=== PATIENT | male | born 1950 | race African-American/Black ===

== ENCOUNTER 2016-08-29 00:51 | Inpatient (IN) | payer OTHER, MEDICARE ==
[2016-08-29] VITALS (9 sets, daily range): BP systolic 143–208; BP diastolic 76–114; PULSE 84–106; RESP 17–22; TEMP 99.3–102.6; O2SAT 95–99
[~2016-08-29] VITALS: Ht 182.9 cm; Wt 78.6 kg
[~2016-08-29 00:51] MED LIST: ASPI81TA82 PO; ATOR40TA PO; CLOP75TA PO; LISI20 PO; NIFE1TAB85 PO; OMEP20TA PO; TERA10CA3 PO; VITA-13
[2016-08-29] MEDS ORDERED: SODIUM CHLOR 0.9% 1000 ML INJ 1,000 ML IV SCH (01:32)
[2016-08-29] MEDS ORDERED: LISI40TA PO (01:34)
[2016-08-29] MEDS ORDERED: TERA10CA3 PO (01:34)
[2016-08-29] MEDS ORDERED: VITA1000 PO (01:34)
[2016-08-29] MEDS ORDERED: DONE5TAB7 PO (01:34)
[2016-08-29] MEDS ORDERED: OMEP20TA PO (01:34)
[2016-08-29] MEDS ORDERED: ATOR1TAB18 PO (01:34)
[2016-08-29] MEDS ORDERED: AMLO10TA2 PO (01:34)
[2016-08-29] MEDS ORDERED: CLOP75TA PO (01:34)
--- NOTE | 2016-08-29 01:40 | PD ---
HPI Chief Complaint: Altered Mental Status Time Seen by Provider: 01:32 Travel History International Travel<30 days: No Contact w/Intl Traveler<30days: No Traveled to known affect area: No History of Present Illness HPI 66-year-old male presents to the emergency department by EMS transport from home where noted patient to have altered mentation. Patient has chronic dementia and memory disturbance reportedly. According to EMS noted that patient was weaker today and had urinary incontinence. Patient has history of hypertension CVA and dementia. No reported history of CAD or diabetes. Patient has had new congested cough without reported hemoptysis. No reported complaint of shortness of breath or chest pain or abdominal pain. History provided by EMS based on information provided reportedly by patient's spouse. Patient himself denies any head pain neck pain chest pain back pain abdominal pain or extremity pain. Patient however only knows his name and date of and is not aware of why he is in the emergency Department or the year or month or his current residence. Patient is able to identify his is severe and that she knows his history. [facility] Past Medical History Narrative Medical Hypertension CVA with reported mild right-sided weakness dyslipidemia dementia tobaccoism nursing notes reviewed Cardiovascular Problems: Yes High Cholesterol: Yes Chest Pain: No Cerebrovascular Accident: Yes Diminished Hearing: No GERD: Yes Hypertension: Yes Neurologic: Yes (right side deficit related to cva) Past Surgical History Surgical History: Unable to Obtain Social History Alcohol Use: Yes Tobacco Use: Yes (1PPD) Substance Use: No Allergies-Medications (Allergen,Severity, Reaction): Coded Allergies: *MDRO Multi-Drug Resistant Organism (Verified Adverse Reaction, Unknown, ) MRSA PCR Screen positive 03/17/15. Reported Meds & Prescriptions Reported Meds & Active Scripts Active Reported Amlodipine (Amlodipine Besylate) 10 Mg Tab 10 Mg PO DAILY Atorvastatin (Atorvastatin Calcium) 80 Mg Tab 40 Mg PO HS Lisinopril 40 Mg Tab 40 Mg PO DAILY Clopidogrel (Clopidogrel Bisulfate) 75 Mg Tab 75 Mg PO DAILY Donepezil 5 Mg Tab 5 Mg PO DAILY@0600 Vitamin D-1000 (Cholecalciferol) 1,000 Unit Tab 2,000 Units PO DAILY Terazosin (Terazosin HCl) 10 Mg Cap 10 Mg PO HS Omeprazole 20 Mg Tab 20 Mg PO DAILY Review of Systems ROS Limitations: Clinical Condition, Altered Mental Status, Other: (/EMS) Except as stated in HPI: all other systems reviewed are Neg General / Constitutional: Positive: Fever (per EMS temperature 10 3F) HENT: Positive: Congestion Cardiovascular: No: Chest Pain or Discomfort Respiratory: Positive: Cough (provided by ), No: Shortness of Breath ( according to ) Gastrointestinal: No: Vomiting, Diarrhea (according to spouse) Genitourinary: Positive: Incontinence (according to EMS and spouse) Musculoskeletal: No: Pain (according to spouse) Neurologic: Positive: Weakness (according to spouse), Change in Mentation ( according to EMS and spouse) Hematologic/Lymphatic: No: Easy Bruising (according to spouse) Physical Exam Narrative GENERAL: Well-developed well-nourished pleasant male in no acute distress no respiratory distress; oral temperature 102.3F SKIN: Warm and dry. HEAD: Atraumatic. Normocephalic. EYES: Pupils equal and round. No scleral icterus. No injection or drainage. ENT: No nasal bleeding or discharge. Mucous membranes pink and moist. NECK: Trachea midline. No JVD. CARDIOVASCULAR: Regular rate and rhythm. RESPIRATORY: No accessory muscle use. Clear to auscultation. Breath sounds equal bilaterally. GASTROINTESTINAL: Abdomen soft, non-tender, nondistended. Hepatic and splenic margins not palpable. MUSCULOSKELETAL: Extremities without clubbing, cyanosis, or edema. No obvious deformities. NEUROLOGICAL: Awake and alert with mild confusion. No obvious cranial nerve deficits. Motor grossly within normal limits. Five out of 5 muscle strength in the arms and legs. Normal speech. PSYCHIATRIC: Appropriate mood and affect. Data Data Last Documented VS Vital Signs Date Time Temp Pulse Resp B/P Pulse Ox O2 Delivery O2 Flow Rate FiO2 08/29/16 02:10 22 98 Room Air 08/29/16 01:14 102.3 103 208/114 Orders Electrocardiogram (08/29/16 01:32) Complete Blood Count With Diff (08/29/16 01:32) Comprehensive Metabolic Panel (08/29/16 01:32) Creatine Kinase (Cpk) (08/29/16 01:32) Prothrombin Time / Inr (Pt) (08/29/16 01:32) Act Partial Throm Time (Ptt) (08/29/16 01:32) Troponin I (08/29/16 01:32) Lactic Acid Sepsis Protocol (08/29/16 01:32) Urinalysis - C+S If Indicated (08/29/16 01:32) Blood Culture (08/29/16 01:32) Chest, Single Ap (08/29/16 01:32) Ct Brain W/O Iv Contrast(Rout) (08/29/16 01:32) Blood Glucose (08/29/16 01:32) Ecg Monitoring (08/29/16 01:32) Iv Access Insert/Monitor (08/29/16 01:32) Oximetry (08/29/16 01:32) Sodium Chloride 0.9% Flush (Ns Flush) (08/29/16 01:45) Sodium Chlor 0.9% 1000 Ml Inj (Ns 1000 M (08/29/16 01:32) Acetaminophen (Tylenol) (08/29/16 01:45) Levofloxacin 750 Mg Premix Inj (Levaquin (08/29/16 01:45) Influenzae A/B Antigen (08/29/16 01:32) CKMB (08/29/16 01:40) CKMB% (08/29/16 01:40) Nitroglycerin 2% Oint (Nitroglycerin 2% (08/29/16 02:30) Urine Culture (08/29/16 02:35) Admit Order (Ed Use Only) (08/29/16 ) ^ Saline Lock (08/29/16 03:35) Resp Oxygen Kyle C Titrat 1-4 L (08/29/16 ) ^ Notify Dr: Other (08/29/16 03:35) Sodium Chloride 0.9% Flush (Ns Flush) (08/29/16 09:00) Sodium Chloride 0.9% Flush (Ns Flush) (08/29/16 03:45) Labs Laboratory Tests Test 08/29/16 08/29/16 08/29/16 01:40 01:43 02:35 White Blood Count 6.5 TH/MM3 Red Blood Count 4.61 MIL/MM3 Hemoglobin 13.5 GM/DL Hematocrit 38.5 % Mean Corpuscular Volume 83.4 FL Mean Corpuscular Hemoglobin 29.2 PG Mean Corpuscular Hemoglobin 35.0 % Concent Red Cell Distribution Width 14.2 % Platelet Count 140 TH/MM3 Mean Platelet Volume 11.0 FL Neutrophils (%) (Auto) 81.3 % Lymphocytes (%) (Auto) 4.0 % Monocytes (%) (Auto) 13.8 % Eosinophils (%) (Auto) 0.0 % Basophils (%) (Auto) 0.9 % Neutrophils # (Auto) 5.3 TH/MM3 Lymphocytes # (Auto) 0.3 TH/MM3 Monocytes # (Auto) 0.9 TH/MM3 Eosinophils # (Auto) 0.0 TH/MM3 Basophils # (Auto) 0.1 TH/MM3 CBC Comment DIFF FINAL Differential Comment Prothrombin Time 13.3 SEC Prothromb Time International 1.2 RATIO Ratio Activated Partial 30.7 SEC Thromboplast Time Sodium Level 142 MEQ/L Potassium Level 3.5 MEQ/L Chloride Level 105 MEQ/L Carbon Dioxide Level 24.0 MEQ/L Anion Gap 13 MEQ/L Blood Urea Nitrogen 16 MG/DL Creatinine 1.52 MG/DL Estimat Glomerular Filtration 56 ML/MIN Rate Random Glucose 100 MG/DL Calcium Level 8.3 MG/DL Total Bilirubin 1.1 MG/DL Aspartate Amino Transf 21 U/L (AST/SGOT) Alanine Aminotransferase 19 U/L (ALT/SGPT) Alkaline Phosphatase 76 U/L Total Creatine Kinase 518 U/L Creatine Kinase MB 0.6 NG/ML Creatine Kinase MB % 0.1 % Troponin I 0.04 NG/ML Total Protein 7.3 GM/DL Albumin 3.5 GM/DL Lactic Acid Level 1.2 mmol/L Urine Color YELLOW Urine Turbidity HAZY Urine pH 5.5 Urine Specific [place] 1.022 Urine Protein 30 mg/dL Urine Glucose (UA) NEG mg/dL Urine Ketones NEG mg/dL Urine Occult Blood MOD Urine Nitrite NEG Urine Bilirubin NEG Urine Urobilinogen LESS THAN 2.0 MG/DL Urine Leukocyte Esterase SMALL Urine RBC 5 /hpf Urine WBC 15 /hpf Urine WBC Clumps OCC Urine Squamous Epithelial <1 /hpf Cells Urine Transitional Epithelial <1 /hpf Cells Urine Bacteria RARE /hpf Urine Mucus FEW /lpf Microscopic Urinalysis Comment CATH-CULTURE IND MDM Medical Decision Making Medical Screen Exam Complete: Yes Emergency Medical Condition: Yes Medical Record Reviewed: Yes Interpretation(s) EKG: Sinus tachycardia rate 106 age-indeterminate QS septally in V1 V2 no acute ST elevation or injury pattern change noted Differential Diagnosis Altered mental status, hypertension, febrile illness, urinary incontinence, ACS , DC, sepsis, CVA, dehydration Narrative Course @ 1:36 Elise Burleson patient's --has noted patient has not been himself has not felt well times one week with worsening symptoms today and then this evening with generalized weakness and urinary incontinence. Patient is has had coughing congestion. is not noticed that he's had a fever. Patient has appointment with his primary care provider tomorrow however due to worsening symptoms tonight decided to have him transported to the emergency department and called EMS for transport. Patient's had no chest pain or shortness of breath according to the . No abdominal pain no vomiting or diarrhea. No new upper or lower extremity numbness tingling or weakness and no recent fall or injury. CT brain noncontrast no bleed or acute process; chest x-ray shows basilar atelectasis but no obvious lobar infiltrate; CBC is automated differential total white cell count is normal but left shift with 84% neutrophils; lactic acid is in normal range at this time; cardiac enzymes are within normal limits EKG shows sinus tachycardia with age indeterminate septal QS in V1 V2; patient with abnormal urinalysis by catheter specimen culture is indicated: Patient has been treated with Levaquin and meets sepsis criteria and patient will be admitted for IV antibiotics serial cardiac enzymes and blood pressure management. Altered mentation most likely reflects patient's baseline mild dementia as well as febrile illness. Critical Care Narrative Aggregate critical care time was 35 minutes. Time to perform other separately billable procedures was not included in the critical care time. My time did not include minutes spent treating any other patients simultaneously or on activities that did not directly contribute to the patient's treatment. The services I provided to this patient were to treat and/or prevent clinically significant deterioration that could result in: Septic shock, respiratory failure, I provided critical care services requiring my management, as noted below: Chart data review, documentation time, medication orders and management, vital sign assessments/reviewing monitor data, ordering and reviewing lab tests, ordering and interpreting/reviewing x-rays and diagnostic studies, care of the patient and discussion of the patient with the admitting physicians. Sepsis Criteria SIRS Criteria (2 or more): Temp > 100.9 or < 96.8, Heart rate over 90 Sepsis Criteria (SIRS+source): Infect source susp/known (urine, possible early pneumonia) Physician Communication Physician Communication call paced to [facility] service; Dr Lopez--admit to her service Diagnosis Primary Impression: Sepsis Qualified Code: A41.9 - Sepsis, due to unspecified organism Additional Impressions: UTI (urinary tract infection) Qualified Code: N39.0 - Urinary tract infection without hematuria, site unspecified HTN (hypertension) Qualified Code: I10 - Essential hypertension Sharon Guerra MD Aug 29, 2016 01:40
[2016-08-29] MEDS ORDERED: SODIUM CHLORIDE 0.9% FLUSH 5 ML FLUSH IVF PRN ×2 (01:45→03:45)
[2016-08-29] MEDS ORDERED: ACETAMINOPHEN 325 MG TAB PO ONE (01:45)
[2016-08-29] MEDS ORDERED: LEVOFLOXACIN 750 MG PREMIX INJ 150 ML IV ONE (01:45)
[2016-08-29 01:54] LABS: AUTOMATED NEUTROPHIL # 5.3 TH/MM3 (1.8-7.7); BASOPHIL # 0.1 TH/MM3 (0-0.2); BASOPHIL % 0.9 % (0.0-2.0); HEMATOCRIT 38.5 % (39.0-51.0); HEMO FLAGS DIFF FINAL; LYMPHOCYTE # 0.3 TH/MM3 (1.0-4.8); MEAN CELL VOLUME 83.4 FL (80.0-100.0); MEAN CORPUSCULAR HEMOGLOBIN 29.2 PG (27.0-34.0); MONO % 13.8 % (0.0-8.0); NEUT % 81.3 % (16.0-70.0); PLATELET COUNT 140 TH/MM3 (150-450); RED BLOOD COUNT 4.61 MIL/MM3 (4.50-5.90); RED CELL DISTRIBUTION WIDTH 14.2 % (11.6-17.2); WHITE BLOOD COUNT 6.5 TH/MM3 (4.0-11.0)
--- NOTE | 2016-08-29 02:00 | RADRPT ---
EXAM DATE/TIME: 08/29/2016 01:43 [facility] COMPARISON: No previous studies available for comparison. INDICATIONS : Shortness of breath. MEDICAL HISTORY : Stroke. SURGICAL HISTORY : None. ENCOUNTER: Initial ACUITY: 1 day PAIN SCORE: Non-responsive. LOCATION: Bilateral chest FINDINGS: A single view of the chest demonstrates the lungs to be symmetrically aerated without evidence of mas s, infiltrate or effusion. Minimal atelectatic changes laterally left hemidiaphragm. The cardiomedia stinal contours are unremarkable. Osseous structures are intact. CONCLUSION: Minimal left basilar atelectatic changes. Otherwise negative. Andrew Anderson MD on August 29, 2016 at 1:58 Board Certified Radiologist. This report was verified electronically.
[2016-08-29 02:07] LABS: APTT (PATIENT) 30.7 SEC (24.3-30.1); INTERNATIONAL NORMALIZED RATIO 1.2 RATIO; PROTHROMBIN TIME - PATIENT 13.3 SEC (9.8-11.6)
[2016-08-29 02:08] LABS: ALT (GPT) 19 U/L (12-78); ANION GAP 13 MEQ/L (5-15); AST (GOT) 21 U/L (15-37); BLOOD UREA NITROGEN 16 MG/DL (7-18); CHLORIDE 105 MEQ/L (98-107); GLOMERULAR FILTRATION RATE 56 ML/MIN (>89); POTASSIUM 3.5 MEQ/L (3.5-5.1); SODIUM (NA) 142 MEQ/L (136-145)
[2016-08-29 02:12] LABS: ALKALINE PHOSPHATASE 76 U/L (45-117); CREATINE KINASE 518 U/L (39-308); TOTAL BILIRUBIN ADULT 1.1 MG/DL (0.2-1.0)
[2016-08-29 02:24] LABS: CKMB 0.6 NG/ML (0.5-3.6)
[2016-08-29] MEDS ORDERED: NITROGLYCERIN 2% OINT 1 GM PACKET TOPICAL ONE (02:30)
--- NOTE | 2016-08-29 03:07 | RADRPT ---
EXAM DATE/TIME: 08/29/2016 02:20 [facility] COMPARISON: CT BRAIN W/O CONTRAST, March 16, 2015, 23:04. INDICATIONS : Altered mental status. RADIATION DOSE: 44.93 CTDIvol (mGy) MEDICAL HISTORY : Cardiovascular disease. Hypertension. Gastroesophageal reflux disease.CVA SURGICAL HISTORY : None. ENCOUNTER: Initial ACUITY: 1 day PAIN SCALE: 0/10 LOCATION: cranial TECHNIQUE: Multiple contiguous axial images were obtained of the head. Using automated exposure control and adj ustment of the mA and/or kV according to patient size, radiation dose was kept as low as reasonably a chievable to obtain optimal diagnostic quality images. FINDINGS: CEREBRUM: The ventricles are normal for age. Bilateral old lacunar type infarcts. Periventricular small vessel ischemic demyelination most prominent over the right lateral ventricle anteriorly. No evidence of m idline shift, mass lesion, hemorrhage or acute infarction. No extra-axial fluid collections are seen . POSTERIOR FOSSA: The cerebellum and brainstem are intact. The 4th ventricle is midline. The cerebellopontine angle i s unremarkable. EXTRACRANIAL: The visualized portion of the orbits is intact. SKULL: The calvaria is intact. No evidence of skull fracture. CONCLUSION: 1. Stable chronic changes with some periventricular small vessel ischemic demyelination and bilateral old lacunar type infarcts. 2. No acute intracranial process. Andrew Anderson MD on August 29, 2016 at 3:02 Board Certified Radiologist. This report was verified electronically.
[2016-08-29 03:21] LABS: BACTERIA, URINE RARE /hpf; BLOOD, URINE MOD (NEG); COMMENT (UR) CATH-CULTURE IND; CULTURE IF INDICATED CATH CULTURE IND; GLUCOSE,URINE NEG (NEG); KETONE, URINE NEG (NEG); MUCUS URINE FEW /lpf (OCC); NITRITE,URINE NEG (NEG); PH, URINE 5.5 (5.0-8.5); SQUAMOUS EPITHELIAL CELL URINE <1 /hpf (0-5); TRANSITIONAL EPI CELLS, URINE <1 /hpf; URINE COLOR YELLOW (YELLW/STRAW)
[2016-08-29] MEDS ORDERED: LEVOFLOXACIN 750 MG PREMIX INJ 150 ML IV SCH (04:00)
[2016-08-29] MEDS ORDERED: ONDANSETRON HCL 4 MG/2 ML VIAL IVP PRN (04:15)
[2016-08-29] MEDS ORDERED: SODIUM CHLORIDE 0.9% FLUSH 5 ML FLUSH FLUSH PRN (04:15)
[2016-08-29] MEDS ORDERED: NALOXONE HCL 0.4 MG/ML AMP IV PRN (04:15)
[2016-08-29] MEDS ORDERED: RESP: ALBUTEROL 2.5 MG/IPRATROPIUM 0.5 MG NEB (SCH) NEB ONE (05:45)
--- NOTE | 2016-08-29 06:51 | HHI.HP ---
[facility] Service [facility] Primary Care Physician [facility] Admission Diagnosis sepsis; uti; htn Diagnoses: Chief Complaint: not able to give specific complaints Travel History International Travel<30 Days: No Contact w/Intl Traveler <30 Da: No Traveled to Known Affected Are: No History of Present Illness History from patient, ER physician communication, and review of medical records. Patient is an elderly gentleman with prior history of CVA. He seems to be forgetful although he tries to answer questions by stating yes or no. He claims that his brought him here because he asked her to do so. However, as per triage notes, patient was brought in by ambulance personnel. Patient is really not able to answer reliably. In the emergency room, patient was found to have fever of 102.3. He was also noted to be tachycardic in the 110s to 120s. At the time of my exam, he was also noted to have cough. Which was dry and nonproductive. The nursing staff also reported to me that EMS personnel stated patient was having dry nonproductive cough at home. Apart from that, patient denies any nausea/vomiting/diarrhea. He denies any urinary burning or pain on urination. Denies seeing any blood in his stool or in his urine. Again, unsure how reliable his answers are. Patient denies any recent falls or syncope. There was no report of that per EMS as well. While in emergency room, patient was quite confused and tried to get out of bed and walk out of the hospital. There for a sitter was ordered. Per ER report, patient's called ambulance because patient has been confused. "noted that patient was weaker today and had urinary incontinence. Patient has history of hypertension CVA and dementia. No reported history of CAD or diabetes. Patient has had new congested cough without reported hemoptysis. No reported complaint of shortness of breath or chest pain or abdominal pain." Review of Systems Except as stated in HPI: all other systems reviewed are Neg Review of system is limited as patient seems to have memory impairment /prior CVA. He pretty much answers no to every questioning. Past Family Social History Past Medical History Hypertension Hyperlipidemia CVA Past Surgical History None per EMR Reported Medications Patient's medications listed on EMRreviewed Allergies: Coded Allergies: *MDRO Multi-Drug Resistant Organism (Verified Adverse Reaction, Unknown, ) MRSA PCR Screen positive 03/17/15. Family History Unknown. Patient is not able to tell me. Social History Reports he still smokes a pack a day. Reports he drinks about 4-5 drinks a day. Unsure if this is true. Denies any drug abuse. Physical Exam Vital Signs Vital Signs Date Time Temp Pulse Resp B/P Pulse Ox O2 Delivery O2 Flow Rate FiO2 08/29/16 02:10 22 98 Room Air 08/29/16 01:14 102.3 103 22 208/114 99 Physical Exam GENERAL: This is elderly gentleman, not in acute distress, looks confused and has blank stare, answers questions though seems to be forgetful and some incorrect answers SKIN: Poor skin turgor. Superficial ecchymoses HEAD: Atraumatic. Normocephalic. No temporal or scalp tenderness. EYES: No scleral icterus. No injection or drainage. ENT: Nose without bleeding, purulent drainage or septal hematoma. Airway patent. Dry oral mucosa. NECK: Trachea midline. No JVDSupple, nontender, no meningeal signs. CARDIOVASCULAR: Regular rate and rhythm without murmurs, gallops, or rubs. Lungs: Bilateral basilar crepitations. Poor inspiratory effort. GASTROINTESTINAL: Abdomen soft, non-tender, nondistended.. No guarding. No CVA tenderness. MUSCULOSKELETAL: Extremities without clubbing, cyanosis, or edema. No calf tenderness NEUROLOGICAL: Awake Motor and sensory grossly within normal limits. Patient is planning towards his right side and seems to be weaker on this although he really is not following commands to do a full exam. Normal speech though slow to respond. Laboratory Laboratory Tests Test 08/29/16 08/29/16 08/29/16 01:40 01:43 02:35 White Blood Count 6.5 Red Blood Count 4.61 Hemoglobin 13.5 Hematocrit 38.5 Mean Corpuscular Volume 83.4 Mean Corpuscular Hemoglobin 29.2 Mean Corpuscular Hemoglobin 35.0 Concent Red Cell Distribution Width 14.2 Platelet Count 140 Mean Platelet Volume 11.0 Neutrophils (%) (Auto) 81.3 Lymphocytes (%) (Auto) 4.0 Monocytes (%) (Auto) 13.8 Eosinophils (%) (Auto) 0.0 Basophils (%) (Auto) 0.9 Neutrophils # (Auto) 5.3 Lymphocytes # (Auto) 0.3 Monocytes # (Auto) 0.9 Eosinophils # (Auto) 0.0 Basophils # (Auto) 0.1 CBC Comment DIFF FINAL Differential Comment Prothrombin Time 13.3 Prothromb Time International 1.2 Ratio Activated Partial 30.7 Thromboplast Time Sodium Level 142 Potassium Level 3.5 Chloride Level 105 Carbon Dioxide Level 24.0 Anion Gap 13 Blood Urea Nitrogen 16 Creatinine 1.52 Estimat Glomerular Filtration 56 Rate Random Glucose 100 Calcium Level 8.3 Total Bilirubin 1.1 Aspartate Amino Transf 21 (AST/SGOT) Alanine Aminotransferase 19 (ALT/SGPT) Alkaline Phosphatase 76 Total Creatine Kinase 518 Creatine Kinase MB 0.6 Creatine Kinase MB % 0.1 Troponin I 0.04 Total Protein 7.3 Albumin 3.5 Lactic Acid Level 1.2 Urine Color YELLOW Urine Turbidity HAZY Urine pH 5.5 Urine Specific [place] 1.022 Urine Protein 30 Urine Glucose (UA) NEG Urine Ketones NEG Urine Occult Blood MOD Urine Nitrite NEG Urine Bilirubin NEG Urine Urobilinogen LESS THAN 2.0 Urine Leukocyte Esterase SMALL Urine RBC 5 Urine WBC 15 Urine WBC Clumps OCC Urine Squamous Epithelial <1 Cells Urine Transitional Epithelial <1 Cells Urine Bacteria RARE Urine Mucus FEW Microscopic Urinalysis Comment CATH-CULTURE IND Date/Time Procedure Status Source Growth 08/29/16 02:35 Urine Culture Received Urine Catheterized Urine Pending 08/29/16 02:00 Influenza Types A,B Antigen (RUSSEL) - Final Complete Nasal Washing NEGATIVE FOR FLU A AND B ANTIGEN.... 08/29/16 01:42 Aerobic Blood Culture Received Blood Peripheral Pending 08/29/16 01:42 Anaerobic Blood Culture Received Blood Peripheral Pending Result Diagram: 08/29/160 08/29/16139 Imaging Last [address] 08/29/16131 Signed Impressions: Service Date/Time: August 02:20 - CONCLUSION: 1. Stable chronic changes with some periventricular small vessel ischemic demyelination and bilateral old lacunar type infarcts. 2. No acute intracranial process. Andrew Anderson MD Chest X-Ray 08/29/16131 Signed Impressions: Service Date/Time: August 01:43 - CONCLUSION: Minimal left basilar atelectatic changes. Otherwise negative. Andrew Anderson MD Assessment and Plan Problem List: (1) Sepsis ICD Code: A41.9 Status: Acute (2) UTI (urinary tract infection) ICD Code: N39.0 Status: Acute Assessment and Plan Impression: Sepsis -UTI as source Fever Possible early pneumonia Altered mental statusin setting of baseline chronic dementia/CVA Clinical signs of dehydration Plan: Patient was given Levaquin in ER. Will continue Levaquin 750 mg IV every 24 hours. Suspects the patient is also having early pneumonia. Will follow-up urine culture results. We'll follow blood culture results. Sitter at the bedside. Patient was given IV hydration with normal saline at 125 cc per hour 1 bag. Will watch patient's by mouth intake after this hydration and follow clinically. If needed, we'll consider starting small dose of maintenance IV fluids. DVT prophylaxison Lovenox. GI prophylaxis on pantoprazole. Discussed Condition With patient, ER MD, ER nurse Physician Certification 2 Midnight Certification Type: Admission for Inpatient Services Order for Inpatient Services The services are ordered in accordance with Medicare regulations or non- Medicare payer requirements, as applicable. In the case of services not specified as inpatient-only, they are appropriately provided as inpatient services in accordance with the 2-midnight benchmark. Estimated LOS (days): 3 days is the estimated time the patient will need to remain in the hospital, assuming treatment plan goals are met and no additional complications. Post-Hospital Plan: Home Problem Qualifiers (1) Sepsis: Qualified Code: A41.9 - Sepsis, due to unspecified organism (2) UTI (urinary tract infection): Qualified Code: N39.0 - Urinary tract infection without hematuria, site unspecified Juanjo Lopez MD Aug 29, 2016 06:51
[2016-08-29] MEDS ORDERED: RESP: ALBUTEROL 2.5 MG/IPRATROPIUM 0.5 MG NEB (PRN) NEB (07:45)
[2016-08-29] MEDS ORDERED: SODIUM CHLORIDE 0.9% FLUSH 5 ML FLUSH IVF SCH (09:00)
[2016-08-29] MEDS: CHOLECALCIFEROL (VIT D3) 1000 UNIT TAB PO SCH (09:00)
[2016-08-29] MEDS: SODIUM CHLORIDE 0.9% FLUSH 5 ML FLUSH FLUSH SCH ×2 (09:00→20:44)
--- NOTE | 2016-08-29 09:11 | HHI.PR ---
Subjective Remarks f/u for possible infection. patient is a poor historian. He is able to tell me that he is confused, knows his name, and knows he is in hospital. Otherwise denied any SOB or pain. He is able to answer yes or now. He stated he has no complaints. no acute events since patient was last seen. Objective Vitals Vital Signs Date Time Temp Pulse Resp B/P Pulse Ox O2 Delivery O2 Flow Rate FiO2 08/29/16 02:10 22 98 Room Air 08/29/16 01:14 102.3 103 22 208/114 99 Result Diagram: 08/29/16 0140 08/29/160 Objective Remarks GENERAL: in NAD CARDIOVASCULAR: Regular rate and rhythm without murmurs, gallops, or rubs. RESPIRATORY: Breath sounds equal bilaterally. No accessory muscle use. GASTROINTESTINAL: Abdomen soft, non-tender, nondistended. MUSCULOSKELETAL: No cyanosis, or edema. BACK: Nontender without obvious deformity. No CVA tenderness. Medications and IVs Current Medications IV Flush 2 ml 2 ml UNSCH PRN IVF FLUSH AFTER USING IV ACCESS Last administered on 08/29/16 01:58; Start 08/29/16 at 01:45; Stop 08/29/16 at 03:40; Status DC Sodium Chloride (NS 1000 ml Inj) 1,000 ml @ 125 mls/hr Q8H IV Last administered on 08/29/16 01:57; Start 08/29/16 at 01:32; Stop 08/29/16 at 06:52; Status DC Acetaminophen 650 mg 650 mg ONCE ONCE PO Last administered on 08/29/16 01:58; Start 08/29/16 at 01:45; Stop 08/29/16 at 01:46; Status DC Levofloxacin/ Dextrose (Levaquin 750 Mg Premix Inj) 150 ml @ 100 mls/hr ONCE ONCE IV Last administered on 08/29/16 01:58; Start 08/29/16 at 01:45; Stop at 03:14; Status DC Nitroglycerin (Nitroglycerin 2% Oint) 1 inch ONCE ONCE TOPICAL Last administered on 08/29/16 03:06; Start 08/29/16 at 02:30; Stop 08/29/16 at 02:31; Status DC IV Flush (NS Flush) 2 ml BID IVF ; Start 08/29/16 at 09:00; Stop 08/29/16 at 09:00 ; Status DC IV Flush (NS Flush) 2 ml UNSCH PRN IVF FLUSH AFTER USING IV ACCESS; Start at 03:45; Stop 08/29/16 at 04:21; Status DC IV Flush (NS Flush) 2 ml UNSCH PRN FLUSH FLUSH AFTER USING IV ACCESS; Start 08/29/16 at 04:15 IV Flush (NS Flush) 2 ml BID FLUSH ; Start 08/29/16 at 09:00 Ondansetron HCl (Zofran Inj) 4 mg Q6H PRN IVP NAUSEA OR VOMITING; Start at 04:15 Enoxaparin Sodium (Lovenox Inj) 40 mg Q24H SQ ; Start 08/29/16 at 09:00 Naloxone HCl 0.4 mg 0.4 mg UNSCH PRN IV SEE LABEL COMMENTS; Start 08/29/16 at 04 :15 Levofloxacin/ Dextrose 150 ml @ 100 mls/hr Q48H IV ; Start 08/29/16 at 04:00; Status Cancel Levofloxacin/ Dextrose 150 ml @ 100 mls/hr Q36H IV ; Start 08/30/16 at 01:00; Status UNV Levofloxacin/ Dextrose (Levaquin 750 Mg Premix Inj) 150 ml @ 100 mls/hr Q48H IV ; Start 08/31/16 at 02:00; Status Cancel Albuterol/ Ipratropium (Duoneb Neb) 1 ampule ONCE ONCE NEB Last administered on 08/29/16t 05:56; Start 08/29/16 at 05:45; Stop 08/29/16 at 05:46; Status DC Albuterol/ Ipratropium (Duoneb Neb) 1 ampule Q4HR NEB PRN NEB wheezing; Start 08/29/16 at 07:45 Albuterol Sulfate 2.5 mg 2.5 mg Q6HR NEB NEB ; Start 08/29/16 at 10:00 Levofloxacin/ Dextrose 150 ml @ 100 mls/hr Q24H IV ; Start 08/30/16 at 02:00 Sodium Chloride (NS 1000 ml Inj) 1,000 ml @ 125 mls/hr Q8H IV ; Start 08/29/16 at 08:45 Amlodipine Besylate (Norvasc) 10 mg DAILY PO ; Start 08/29/16 at 09:00 Atorvastatin Calcium (Lipitor) 40 mg HS PO ; Start 08/29/16 at 21:00 Cholecalciferol (Vitamin D3) 2,000 units DAILY PO ; Start 08/29/16 at 09:00 Clopidogrel Bisulfate (Plavix) 75 mg DAILY PO ; Start 08/29/16 at 09:00 Donepezil HCl (Aricept) 5 mg DAILY@0600 PO ; Start 08/30/16 at 06:00 Lisinopril (Prinivil) 40 mg DAILY PO ; Start 08/29/16 at 09:00 Pantoprazole Sodium (Protonix) 20 mg DAILY PO ; Start 08/29/16 at 09:00 Terazosin HCl (Hytrin) 10 mg HS PO ; Start 08/29/16 at 21:00 A/P Problem List: (1) Sepsis ICD Code: A41.9 Status: Acute (2) UTI (urinary tract infection) ICD Code: N39.0 Status: Acute Assessment and Plan Sepsis -UTI as source vs Possible early pneumonia although CXR was not impressive. -on levaquin. -clinically stable. -pending urine cultures and blood cultures. Altered mental statusin setting of baseline chronic dementia/CVA Clinical signs of dehydration UTI -based on UA -see treatment as above. Dementia -he seems to be at his baseline. -I will continue to monitor. DVT prophylaxison Lovenox. GI prophylaxis on pantoprazole. Dispo: early work up of sepsis. continues to require hospitalization. Problem Qualifiers (1) Sepsis: Qualified Code: A41.9 - Sepsis, due to unspecified organism (2) UTI (urinary tract infection): Qualified Code: N39.0 - Urinary tract infection without hematuria, site unspecified Tabatha Dee MD Aug 29, 2016 09:11
[2016-08-29] MEDS: SODIUM CHLOR 0.9% 1000 ML INJ 1,000 ML IV SCH ×2 (09:21→16:45)
[2016-08-29] MEDS: LISINOPRIL 20 MG TAB PO SCH (10:29)
[2016-08-29] MEDS: CLOPIDOGREL 75 MG TAB PO SCH (10:29)
[2016-08-29] MEDS: PANTOPRAZOLE SOD 20 MG DELAYED RELEASE TAB PO SCH (10:29)
[2016-08-29] MEDS: ENOXAPARIN SODIUM 40 MG/0.4 ML SYRINGE SQ SCH (10:30)
--- NOTE | 2016-08-29 13:11 | EKG ---
Date Performed: 08/29/2016 Time Performed: 02:33:02 PTAGE: 66 years EKG: SINUS TACHYCARDIA WITH SHORT TX INTERVAL SEPTAL MYOCARDIAL INFARCTION SINUS RATE IS MUCH FA STER SINCE THE PRIOR TRACING Compared to prior tracing no significant change ABNORMAL ECG PREVIOUS TRACING : 03/16/2015 22.19 DOCTOR: Maurice Mcmanus Interpretating Date/Time 08/29/2016 13:10:30
[2016-08-29] MEDS: RESP: ALBUTEROL 2.5 MG/3 ML NEB (SCH) NEB ×2 (16:00→22:00)
[2016-08-29] MEDS: ATORVASTATIN 40 MG TAB PO SCH (20:43)
[2016-08-29] MEDS: TERAZOSIN HCL 5 MG CAP PO SCH (22:24)
[2016-08-29] MEDS ORDERED: cloNIDine HCL 0.1 MG TAB PO ONE (22:45)
[2016-08-30] VITALS (11 sets, daily range): BP systolic 116–160; BP diastolic 70–101; PULSE 73–115; RESP 18–21; TEMP 98.8–101.3; O2SAT 93–98
[2016-08-30] MEDS ORDERED: LEVOFLOXACIN 750 MG PREMIX INJ 150 ML IV SCH (01:00)
[2016-08-30] MEDS: LEVOFLOXACIN 750 MG PREMIX INJ 150 ML IV SCH (01:46)
[2016-08-30] MEDS: RESP: ALBUTEROL 2.5 MG/3 ML NEB (SCH) NEB ×4 (03:46→21:04)
[2016-08-30] MEDS: SODIUM CHLOR 0.9% 1000 ML INJ 1,000 ML IV SCH ×3 (04:00→22:02)
[2016-08-30] MEDS: DONEPEZIL HCL 5 MG TAB PO SCH (06:11)
[2016-08-30] MEDS: SODIUM CHLORIDE 0.9% FLUSH 5 ML FLUSH FLUSH SCH ×2 (09:00→22:02)
[2016-08-30 09:23] LABS: AUTOMATED NEUTROPHIL # 2.9 TH/MM3 (1.8-7.7); BASOPHIL % 0.5 % (0.0-2.0); EOSINOPHIL % 0.1 % (0.0-4.0); HEMO FLAGS DIFF FINAL; LYMPH % 12.3 % (9.0-44.0); LYMPHOCYTE # 0.5 TH/MM3 (1.0-4.8); MEAN CELL VOLUME 82.7 FL (80.0-100.0); MEAN CORPUSCULAR HEMOGLOBIN 28.7 PG (27.0-34.0); MEAN CORPUSCULAR HGB CONC 34.7 % (32.0-36.0); NEUT % 71.1 % (16.0-70.0); PLATELET COUNT 108 TH/MM3 (150-450); RED BLOOD COUNT 4.36 MIL/MM3 (4.50-5.90); RED CELL DISTRIBUTION WIDTH 13.9 % (11.6-17.2)
[2016-08-30] MEDS: ENOXAPARIN SODIUM 40 MG/0.4 ML SYRINGE SQ SCH (09:35)
[2016-08-30] MEDS: LISINOPRIL 20 MG TAB PO SCH (09:35)
[2016-08-30] MEDS: PANTOPRAZOLE SOD 20 MG DELAYED RELEASE TAB PO SCH (09:35)
[2016-08-30] MEDS: CHOLECALCIFEROL (VIT D3) 1000 UNIT TAB PO SCH (09:35)
[2016-08-30] MEDS: CLOPIDOGREL 75 MG TAB PO SCH (09:35)
[2016-08-30 09:51] LABS: BICARBONATE 25.7 MEQ/L (21.0-32.0)
[2016-08-30] MEDS ORDERED: POTASSIUM CHLORIDE 20 MEQ CONTROLLED RELEASE TAB PO ONE (16:00)
--- NOTE | 2016-08-30 16:02 | HHI.PR ---
Subjective Remarks f/u for infection. Patient's and best friend at bedside. patient's stated patient has dementia and she has been having a harder time taking care of her . patient stated there is noway she can take him home. Patient has no complaints. He is sitting at the eating his breakfast. Denied an CP, SOB, palpitations, lightheadedness or dizziness. Objective Vitals Vital Signs Date Time Temp Pulse Resp B/P Pulse Ox O2 Delivery O2 Flow Rate FiO2 08/30/16 12:08 98.8 115 18 132/70 98 08/30/16 08:12 93 21 08/30/16 08:00 99.0 104 19 160/88 98 08/30/16 04:00 100.3 93 19 160/101 95 08/30/16 01:59 100.5 08/30/16 00:24 160/92 08/30/16 00:00 101.3 73 19 94 08/29/16 22:29 170/106 Automatic Cuff 08/29/16 21:00 103 08/29/16 20:30 100.5 106 17 180/108 96 08/29/16 17:40 102.6 95 20 183/112 96 I/O 08/29/16 08/29/16 08/29/16 08/30/16 08/30/16 08/30/16 07:00 15:00 23:00 07:00 15:00 23:00 Intake Total 2641 ml 926 ml Output Total 200 ml 600 ml Balance 2441 ml 326 ml Intake Oral 480 ml 120 ml IV Total 2161 ml 806 ml Output Urine Total 200 ml 600 ml # Voids 4 # Bowel Movements 0 0 Result Diagram: 08/30/16 0803 08/30/16 0803 Objective Remarks GENERAL: in NAD CARDIOVASCULAR: Regular rate and rhythm without murmurs, gallops, or rubs. RESPIRATORY: Breath sounds equal bilaterally. No accessory muscle use. GASTROINTESTINAL: Abdomen soft, non-tender, nondistended. MUSCULOSKELETAL: No cyanosis, or edema. BACK: Nontender without obvious deformity. No CVA tenderness. Medications and IVs Current Medications IV Flush 2 ml 2 ml UNSCH PRN IVF FLUSH AFTER USING IV ACCESS Last administered on 08/29/16t 01:58; Start 08/29/16 at 01:45; Stop 08/29/16 at 03:40; Status DC Sodium Chloride (NS 1000 ml Inj) 1,000 ml @ 125 mls/hr Q8H IV Last administered on 08/29/16 01:57; Start 08/29/16 at 01:32; Stop 08/29/16 at 06:52; Status DC Acetaminophen 650 mg 650 mg ONCE ONCE PO Last administered on 08/29/16 01:58; Start 08/29/16 at 01:45; Stop 08/29/16 at 01:46; Status DC Levofloxacin/ Dextrose (Levaquin 750 Mg Premix Inj) 150 ml @ 100 mls/hr ONCE ONCE IV Last administered on 08/29/16 01:58; Start 08/29/16 at 01:45; Stop at 03:14; Status DC Nitroglycerin (Nitroglycerin 2% Oint) 1 inch ONCE ONCE TOPICAL Last administered on 08/29/16 03:06; Start 08/29/16 at 02:30; Stop 08/29/16 at 02:31; Status DC IV Flush (NS Flush) 2 ml BID IVF ; Start 08/29/16 at 09:00; Stop 08/29/16 at 09:00 ; Status DC IV Flush (NS Flush) 2 ml UNSCH PRN IVF FLUSH AFTER USING IV ACCESS; Start at 03:45; Stop 08/29/16 at 04:21; Status DC IV Flush (NS Flush) 2 ml UNSCH PRN FLUSH FLUSH AFTER USING IV ACCESS; Start 08/29/16 at 04:15 IV Flush (NS Flush) 2 ml BID FLUSH ; Start 08/29/16 at 09:00 Ondansetron HCl (Zofran Inj) 4 mg Q6H PRN IVP NAUSEA OR VOMITING; Start at 04:15 Enoxaparin Sodium (Lovenox Inj) 40 mg Q24H SQ Last administered on 08/30/16 09 :35; Start 08/29/16 at 09:00 Naloxone HCl 0.4 mg 0.4 mg UNSCH PRN IV SEE LABEL COMMENTS; Start 08/29/16 at 04 :15 Levofloxacin/ Dextrose 150 ml @ 100 mls/hr Q48H IV ; Start 08/29/16 at 04:00; Status Cancel Levofloxacin/ Dextrose 150 ml @ 100 mls/hr Q36H IV ; Start 08/30/16 at 01:00; Status UNV Levofloxacin/ Dextrose (Levaquin 750 Mg Premix Inj) 150 ml @ 100 mls/hr Q48H IV ; Start 08/31/16 at 02:00; Status Cancel Albuterol/ Ipratropium (Duoneb Neb) 1 ampule ONCE ONCE NEB Last administered on 08/29/16 05:56; Start 08/29/16 at 05:45; Stop 08/29/16 at 05:46; Status DC Albuterol/ Ipratropium (Duoneb Neb) 1 ampule Q4HR NEB PRN NEB wheezing Last administered on 08/29/16 10:05; Start 08/29/16 at 07:45 Albuterol Sulfate 2.5 mg 2.5 mg Q6HR NEB NEB Last administered on 08/30/16 15 :09; Start 08/29/16 at 10:00 Levofloxacin/ Dextrose 150 ml @ 100 mls/hr Q24H IV Last administered on 01:46; Start 08/30/16 at 02:00 Sodium Chloride (NS 1000 ml Inj) 1,000 ml @ 125 mls/hr Q8H IV Last administered on 08/30/16 04:00; Start 08/29/16 at 08:45 Amlodipine Besylate (Norvasc) 10 mg DAILY PO Last administered on 08/30/16 09: 35; Start 08/29/16 at 09:00 Atorvastatin Calcium (Lipitor) 40 mg HS PO Last administered on 08/29/16 20:43 ; Start 08/29/16 at 21:00 Cholecalciferol (Vitamin D3) 2,000 units DAILY PO Last administered on 09:35; Start 08/29/16 at 09:00 Clopidogrel Bisulfate (Plavix) 75 mg DAILY PO Last administered on 08/30/16 09 :35; Start 08/29/16 at 09:00 Donepezil HCl (Aricept) 5 mg DAILY@0600 PO Last administered on 08/30/16 06:11 ; Start 08/30/16 at 06:00 Lisinopril (Prinivil) 40 mg DAILY PO Last administered on 08/30/16 09:35; Start 08/29/16 at 09:00 Pantoprazole Sodium (Protonix) 20 mg DAILY PO Last administered on 08/30/16 09 :35; Start 08/29/16 at 09:00 Terazosin HCl (Hytrin) 10 mg HS PO Last administered on 08/29/16 22:24; Start 08/29/16 at 21:00 Clonidine (Catapres) 0.1 mg ONCE ONCE PO Last administered on 08/29/16 22:46; Start 08/29/16 at 22:45; Stop 08/29/16 at 22:46; Status DC Potassium Chloride (KCl) 40 meq ONCE ONCE PO ; Start 08/30/16 at 16:00; Stop at 16:01 A/P Problem List: (1) Sepsis ICD Code: A41.9 Status: Acute (2) UTI (urinary tract infection) ICD Code: N39.0 Status: Acute Assessment and Plan Sepsis -UTI as source vs Possible early pneumonia although CXR was not impressive. -on levaquin. -clinically stable. -so far urine and blood cultures negative. -patient did have fevers but this is probably viral. -continue with current regimen. Altered mental status in setting of baseline chronic dementia/CVA UTI -based on UA -see treatment as above. Dementia -he seems to be at his baseline and per his he is at baseline -I will continue to monitor. DVT prophylaxison Lovenox. GI prophylaxis on pantoprazole. Dispo: will have PT eval patient for placement. at the moment continues to have fever. need to keep on antibiotics to r/o bacterial infection. Problem Qualifiers (1) Sepsis: Qualified Code: A41.9 - Sepsis, due to unspecified organism (2) UTI (urinary tract infection): Qualified Code: N39.0 - Urinary tract infection without hematuria, site unspecified Tabatha Dee MD Aug 30, 2016 16:02
[2016-08-30] MEDS: ATORVASTATIN 40 MG TAB PO SCH (22:00)
[2016-08-30] MEDS: TERAZOSIN HCL 5 MG CAP PO SCH (22:01)
[2016-08-31] VITALS (9 sets, daily range): BP systolic 132–179; BP diastolic 77–98; PULSE 90–106; RESP 18–21; TEMP 96.5–99.9; O2SAT 92–100
[2016-08-31] MEDS ORDERED: LEVOFLOXACIN 750 MG PREMIX INJ 150 ML IV SCH (02:00)
[2016-08-31] MEDS: LEVOFLOXACIN 750 MG PREMIX INJ 150 ML IV SCH (02:26)
[2016-08-31] MEDS: RESP: ALBUTEROL 2.5 MG/3 ML NEB (SCH) NEB ×4 (04:28→19:30)
[2016-08-31] MEDS: DONEPEZIL HCL 5 MG TAB PO SCH (05:33)
[2016-08-31 05:50] LABS: HEMATOCRIT 33.1 % (39.0-51.0); MEAN CELL VOLUME 82.6 FL (80.0-100.0); MEAN CORPUSCULAR HEMOGLOBIN 29.1 PG (27.0-34.0); MEAN CORPUSCULAR HGB CONC 35.3 % (32.0-36.0); PLATELET COUNT 125 TH/MM3 (150-450); RED BLOOD COUNT 4.01 MIL/MM3 (4.50-5.90); RED CELL DISTRIBUTION WIDTH 13.9 % (11.6-17.2); REVIEW FLAG FINAL; WHITE BLOOD COUNT 2.9 TH/MM3 (4.0-11.0)
[2016-08-31 06:03] LABS: BICARBONATE 23.7 MEQ/L (21.0-32.0); POTASSIUM 3.1 MEQ/L (3.5-5.1)
[2016-08-31] MEDS: SODIUM CHLOR 0.9% 1000 ML INJ 1,000 ML IV SCH (08:44)
[2016-08-31] MEDS: SODIUM CHLORIDE 0.9% FLUSH 5 ML FLUSH FLUSH SCH ×2 (08:44→19:50)
[2016-08-31] MEDS: ENOXAPARIN SODIUM 40 MG/0.4 ML SYRINGE SQ SCH (08:51)
[2016-08-31] MEDS: CLOPIDOGREL 75 MG TAB PO SCH (08:51)
[2016-08-31] MEDS: CHOLECALCIFEROL (VIT D3) 1000 UNIT TAB PO SCH (08:51)
[2016-08-31] MEDS: PANTOPRAZOLE SOD 20 MG DELAYED RELEASE TAB PO SCH (08:51)
[2016-08-31] MEDS: LISINOPRIL 20 MG TAB PO SCH (08:51)
--- NOTE | 2016-08-31 10:50 | HHI.PR ---
Subjective Remarks f/u with infection. Patient has no complaints. Denied any pain or SOB. Spoke to nurse and his tech and they stated that he was urinating a lot so asked to stop fluids. no fever overnight. Objective Vitals Vital Signs Date Time Temp Pulse Resp B/P Pulse Ox O2 Delivery O2 Flow Rate FiO2 08/31/16 08:03 98 21 08/31/16 07:50 97.6 106 20 157/96 92 08/31/16 04:00 99.9 99 21 150/77 98 08/31/16 00:00 99.7 102 20 132/81 97 08/30/16 20:27 93 21 08/30/16 20:00 100.0 101 21 134/75 98 08/30/16 16:08 99.7 102 20 116/74 96 08/30/16 12:08 98.8 115 18 132/70 98 I/O 08/30/16 08/30/16 08/30/16 08/31/16 08/31/16 08/31/16 07:00 15:00 23:00 07:00 15:00 23:00 Intake Total 926 ml 1200 ml 579 ml Output Total 600 ml Balance 326 ml 1200 ml 579 ml Intake Oral 120 ml 1200 ml 240 ml IV Total 806 ml 339 ml Output Urine Total 600 ml # Voids 3 1 3 # Bowel Movements 0 1 Result Diagram: 08/31/169 08/31/169 Objective Remarks GENERAL: in NAD CARDIOVASCULAR: Regular rate and rhythm without murmurs, gallops, or rubs. RESPIRATORY: Breath sounds equal bilaterally. No accessory muscle use. GASTROINTESTINAL: Abdomen soft, non-tender, nondistended. MUSCULOSKELETAL: No cyanosis, or edema. BACK: Nontender without obvious deformity. No CVA tenderness. Medications and IVs Current Medications IV Flush 2 ml 2 ml UNSCH PRN IVF FLUSH AFTER USING IV ACCESS Last administered on 08/29/16 01:58; Start 08/29/16 at 01:45; Stop 08/29/16 at 03:40; Status DC Sodium Chloride (NS 1000 ml Inj) 1,000 ml @ 125 mls/hr Q8H IV Last administered on 08/29/16 01:57; Start 08/29/16 at 01:32; Stop 08/29/16 at 06:52; Status DC Acetaminophen 650 mg 650 mg ONCE ONCE PO Last administered on 08/29/16 01:58; Start 08/29/16 at 01:45; Stop 08/29/16 at 01:46; Status DC Levofloxacin/ Dextrose (Levaquin 750 Mg Premix Inj) 150 ml @ 100 mls/hr ONCE ONCE IV Last administered on 08/29/16 01:58; Start 08/29/16 at 01:45; Stop at 03:14; Status DC Nitroglycerin (Nitroglycerin 2% Oint) 1 inch ONCE ONCE TOPICAL Last administered on 08/29/16 03:06; Start 08/29/16 at 02:30; Stop 08/29/16 at 02:31; Status DC IV Flush (NS Flush) 2 ml BID IVF ; Start 08/29/16 at 09:00; Stop 08/29/16 at 09:00 ; Status DC IV Flush (NS Flush) 2 ml UNSCH PRN IVF FLUSH AFTER USING IV ACCESS; Start at 03:45; Stop 08/29/16 at 04:21; Status DC IV Flush (NS Flush) 2 ml UNSCH PRN FLUSH FLUSH AFTER USING IV ACCESS; Start 08/29/16 at 04:15 IV Flush (NS Flush) 2 ml BID FLUSH Last administered on 08/30/16 22:02; Start 08/29/16 at 09:00 Ondansetron HCl (Zofran Inj) 4 mg Q6H PRN IVP NAUSEA OR VOMITING; Start at 04:15 Enoxaparin Sodium (Lovenox Inj) 40 mg Q24H SQ Last administered on 08/31/16 08 :51; Start 08/29/16 at 09:00 Naloxone HCl 0.4 mg 0.4 mg UNSCH PRN IV SEE LABEL COMMENTS; Start 08/29/16 at 04 :15 Levofloxacin/ Dextrose 150 ml @ 100 mls/hr Q48H IV ; Start 08/29/16 at 04:00; Status Cancel Levofloxacin/ Dextrose 150 ml @ 100 mls/hr Q36H IV ; Start 08/30/16 at 01:00; Status UNV Levofloxacin/ Dextrose (Levaquin 750 Mg Premix Inj) 150 ml @ 100 mls/hr Q48H IV ; Start 08/31/16 at 02:00; Status Cancel Albuterol/ Ipratropium (Duoneb Neb) 1 ampule ONCE ONCE NEB Last administered on 08/29/16 05:56; Start 08/29/16 at 05:45; Stop 08/29/16 at 05:46; Status DC Albuterol/ Ipratropium (Duoneb Neb) 1 ampule Q4HR NEB PRN NEB wheezing Last administered on 08/29/16 10:05; Start 08/29/16 at 07:45 Albuterol Sulfate 2.5 mg 2.5 mg Q6HR NEB NEB Last administered on 08/31/16 07 :59; Start 08/29/16 at 10:00 Levofloxacin/ Dextrose 150 ml @ 100 mls/hr Q24H IV Last administered on 02:26; Start 08/30/16 at 02:00 Sodium Chloride (NS 1000 ml Inj) 1,000 ml @ 125 mls/hr Q8H IV Last administered on 08/30/16 22:02; Start 08/29/16 at 08:45 Amlodipine Besylate (Norvasc) 10 mg DAILY PO Last administered on 08/31/16 08: 51; Start 08/29/16 at 09:00 Atorvastatin Calcium (Lipitor) 40 mg HS PO Last administered on 08/30/16 22:00 ; Start 08/29/16 at 21:00 Cholecalciferol (Vitamin D3) 2,000 units DAILY PO Last administered on 08:51; Start 08/29/16 at 09:00 Clopidogrel Bisulfate (Plavix) 75 mg DAILY PO Last administered on 08/31/16 08 :51; Start 08/29/16 at 09:00 Donepezil HCl (Aricept) 5 mg DAILY@0600 PO Last administered on 08/31/16 05:33 ; Start 08/30/16 at 06:00 Lisinopril (Prinivil) 40 mg DAILY PO Last administered on 08/31/16 08:51; Start 08/29/16 at 09:00 Pantoprazole Sodium (Protonix) 20 mg DAILY PO Last administered on 08/31/16 08 :51; Start 08/29/16 at 09:00 Terazosin HCl (Hytrin) 10 mg HS PO Last administered on 08/30/16 22:01; Start 08/29/16 at 21:00 Clonidine (Catapres) 0.1 mg ONCE ONCE PO Last administered on 08/29/16 22:46; Start 08/29/16 at 22:45; Stop 08/29/16 at 22:46; Status DC Potassium Chloride (KCl) 40 meq ONCE ONCE PO Last administered on 08/30/16 17 :58; Start 08/30/16 at 16:00; Stop 08/30/16 at 16:01; Status DC A/P Problem List: (1) Sepsis ICD Code: A41.9 Status: Acute (2) UTI (urinary tract infection) ICD Code: N39.0 Status: Acute Assessment and Plan Sepsis -UTI as source vs Possible early pneumonia although CXR was not impressive. -on levaquin. -clinically stable. -so far urine and blood cultures negative. -patient did have fevers but this is probably viral. -continue with current regimen. Altered mental status per patient's this is his baseline and he has been stable. -due to Dementia. UTI -based on UA -see treatment as above. Dementia -he seems to be at his baseline and per his he is at baseline -I will continue to monitor. DVT prophylaxison Lovenox. GI prophylaxis on pantoprazole. Dispo: patient will need to go to SNF. once cultures negative for 48 hrs can d/ c antibiotics. Problem Qualifiers (1) Sepsis: Qualified Code: A41.9 - Sepsis, due to unspecified organism (2) UTI (urinary tract infection): Qualified Code: N39.0 - Urinary tract infection without hematuria, site unspecified Tabatha Dee MD Aug 31, 2016 10:49
[2016-08-31] MEDS ORDERED: POTASSIUM CHLORIDE 20 MEQ CONTROLLED RELEASE TAB PO ONE (11:00)
[2016-08-31] MEDS ORDERED: ENALAPRILAT 1.25 MG/ML VIAL IV PUSH PRN (15:00)
[2016-08-31] MEDS: ATORVASTATIN 40 MG TAB PO SCH (19:49)
[2016-08-31] MEDS: TERAZOSIN HCL 5 MG CAP PO SCH (19:50)
[2016-09-01] VITALS (10 sets, daily range): BP systolic 116–160; BP diastolic 69–95; PULSE 89–102; RESP 19–20; TEMP 96.9–101.3; O2SAT 92–98
[2016-09-01] MEDS: RESP: ALBUTEROL 2.5 MG/3 ML NEB (SCH) NEB ×4 (03:38→21:20)
[2016-09-01] MEDS: DONEPEZIL HCL 5 MG TAB PO SCH (05:21)
[2016-09-01] MEDS: CLOPIDOGREL 75 MG TAB PO SCH (08:06)
[2016-09-01] MEDS: SODIUM CHLORIDE 0.9% FLUSH 5 ML FLUSH FLUSH SCH ×2 (08:06→22:15)
[2016-09-01] MEDS: CHOLECALCIFEROL (VIT D3) 1000 UNIT TAB PO SCH (08:07)
[2016-09-01] MEDS: PANTOPRAZOLE SOD 20 MG DELAYED RELEASE TAB PO SCH (08:07)
[2016-09-01] MEDS: LISINOPRIL 20 MG TAB PO SCH (08:07)
[2016-09-01] MEDS: ENOXAPARIN SODIUM 40 MG/0.4 ML SYRINGE SQ SCH (08:07)
[2016-09-01 10:43] LABS: AUTOMATED NEUTROPHIL # 2.3 TH/MM3 (1.8-7.7); BASOPHIL % 0.2 % (0.0-2.0); EOSINOPHIL % 0.1 % (0.0-4.0); HEMATOCRIT 34.3 % (39.0-51.0); HEMO FLAGS DIFF FINAL; LYMPH % 18.3 % (9.0-44.0); LYMPHOCYTE # 0.6 TH/MM3 (1.0-4.8); MEAN CELL VOLUME 82.9 FL (80.0-100.0); MONO % 12.9 % (0.0-8.0); NEUT % 68.5 % (16.0-70.0); PLATELET COUNT 143 TH/MM3 (150-450); RED BLOOD COUNT 4.14 MIL/MM3 (4.50-5.90); RED CELL DISTRIBUTION WIDTH 13.8 % (11.6-17.2); WHITE BLOOD COUNT 3.3 TH/MM3 (4.0-11.0)
[2016-09-01 11:02] LABS: BICARBONATE 26.8 MEQ/L (21.0-32.0); MAGNESIUM 1.9 MG/DL (1.5-2.5)
--- NOTE | 2016-09-01 16:22 | HHI.PR ---
Subjective Remarks f/u for fever patient has no complaints but does have dementia. He did have low grade fever but otherwise has been stable. Denied any COB, CP, palpitations, lightheadedness or dizziness. Objective Vitals Vital Signs Date Time Temp Pulse Resp B/P Pulse Ox O2 Delivery O2 Flow Rate FiO2 09/01/16 15:39 94 Nasal Cannula 21 09/01/16 14:05 97 09/01/16 11:30 96.9 97 20 116/69 95 09/01/16 07:50 100.4 102 20 160/95 94 09/01/16 07:42 94 21 09/01/16 04:00 97.5 94 19 142/77 97 09/01/16 00:00 97.0 89 19 148/74 98 08/31/16 20:00 97.9 94 18 153/84 100 08/31/16 19:30 96 21 I/O 08/31/16 08/31/16 08/31/16 09/01/16 09/01/16 09/01/16 07:00 15:00 23:00 07:00 15:00 23:00 Intake Total 579 ml 120 ml 240 ml 60 ml Output Total 375 ml 600 ml 800 ml Balance 579 ml -255 ml -360 ml -740 ml Intake Oral 240 ml 120 ml 240 ml 60 ml IV Total 339 ml Output Urine Total 375 ml 600 ml 800 ml Stool Total 0 ml # Voids 3 4 Result Diagram: 09/01/16 1000 09/01/16 1000 Objective Remarks GENERAL: in NAD CARDIOVASCULAR: Regular rate and rhythm without murmurs, gallops, or rubs. RESPIRATORY: Breath sounds equal bilaterally. No accessory muscle use. GASTROINTESTINAL: Abdomen soft, non-tender, nondistended. MUSCULOSKELETAL: No cyanosis, or edema. BACK: Nontender without obvious deformity. No CVA tenderness. Medications and IVs Current Medications IV Flush 2 ml 2 ml UNSCH PRN IVF FLUSH AFTER USING IV ACCESS Last administered on 08/29/16 01:58; Start 08/29/16 at 01:45; Stop 08/29/16 at 03:40; Status DC Sodium Chloride (NS 1000 ml Inj) 1,000 ml @ 125 mls/hr Q8H IV Last administered on 08/29/16 01:57; Start 08/29/16 at 01:32; Stop 08/29/16 at 06:52; Status DC Acetaminophen 650 mg 650 mg ONCE ONCE PO Last administered on 08/29/16 01:58; Start 08/29/16 at 01:45; Stop 08/29/16 at 01:46; Status DC Levofloxacin/ Dextrose (Levaquin 750 Mg Premix Inj) 150 ml @ 100 mls/hr ONCE ONCE IV Last administered on 08/29/16 01:58; Start 08/29/16 at 01:45; Stop at 03:14; Status DC Nitroglycerin (Nitroglycerin 2% Oint) 1 inch ONCE ONCE TOPICAL Last administered on 08/29/16 03:06; Start 08/29/16 at 02:30; Stop 08/29/16 at 02:31; Status DC IV Flush (NS Flush) 2 ml BID IVF ; Start 08/29/16 at 09:00; Stop 08/29/16 at 09:00 ; Status DC IV Flush (NS Flush) 2 ml UNSCH PRN IVF FLUSH AFTER USING IV ACCESS; Start at 03:45; Stop 08/29/16 at 04:21; Status DC IV Flush (NS Flush) 2 ml UNSCH PRN FLUSH FLUSH AFTER USING IV ACCESS; Start 08/29/16 at 04:15 IV Flush (NS Flush) 2 ml BID FLUSH Last administered on 09/01/16 08:06; Start 08/29/16 at 09:00 Ondansetron HCl (Zofran Inj) 4 mg Q6H PRN IVP NAUSEA OR VOMITING; Start at 04:15 Enoxaparin Sodium (Lovenox Inj) 40 mg Q24H SQ Last administered on 09/01/16 08 :07; Start 08/29/16 at 09:00 Naloxone HCl 0.4 mg 0.4 mg UNSCH PRN IV SEE LABEL COMMENTS; Start 08/29/16 at 04 :15 Levofloxacin/ Dextrose 150 ml @ 100 mls/hr Q48H IV ; Start 08/29/16 at 04:00; Status Cancel Levofloxacin/ Dextrose 150 ml @ 100 mls/hr Q36H IV ; Start 08/30/16 at 01:00; Status UNV Levofloxacin/ Dextrose (Levaquin 750 Mg Premix Inj) 150 ml @ 100 mls/hr Q48H IV ; Start 08/31/16 at 02:00; Status Cancel Albuterol/ Ipratropium (Duoneb Neb) 1 ampule ONCE ONCE NEB Last administered on 08/29/16 05:56; Start 08/29/16 at 05:45; Stop 08/29/16 at 05:46; Status DC Albuterol/ Ipratropium (Duoneb Neb) 1 ampule Q4HR NEB PRN NEB wheezing Last administered on 08/29/16 10:05; Start 08/29/16 at 07:45 Albuterol Sulfate 2.5 mg 2.5 mg Q6HR NEB NEB Last administered on 09/01/16 15 :37; Start 08/29/16 at 10:00 Levofloxacin/ Dextrose 150 ml @ 100 mls/hr Q24H IV Last administered on 02:26; Start 08/30/16 at 02:00; Stop 08/31/16 at 14:54; Status DC Sodium Chloride (NS 1000 ml Inj) 1,000 ml @ 125 mls/hr Q8H IV Last administered on 08/30/16 22:02; Start 08/29/16 at 08:45; Stop 08/31/16 at 10:41 ; Status DC Amlodipine Besylate (Norvasc) 10 mg DAILY PO Last administered on 09/01/16 08: 06; Start 08/29/16 at 09:00 Atorvastatin Calcium (Lipitor) 40 mg HS PO Last administered on 08/31/16 19:49 ; Start 08/29/16 at 21:00 Cholecalciferol (Vitamin D3) 2,000 units DAILY PO Last administered on 08:07; Start 08/29/16 at 09:00 Clopidogrel Bisulfate (Plavix) 75 mg DAILY PO Last administered on 09/01/16 08 :06; Start 08/29/16 at 09:00 Donepezil HCl (Aricept) 5 mg DAILY@0600 PO Last administered on 09/01/16 05:21 ; Start 08/30/16 at 06:00 Lisinopril (Prinivil) 40 mg DAILY PO Last administered on 09/01/16 08:07; Start 08/29/16 at 09:00 Pantoprazole Sodium (Protonix) 20 mg DAILY PO Last administered on 09/01/16 08 :07; Start 08/29/16 at 09:00 Terazosin HCl (Hytrin) 10 mg HS PO Last administered on 08/31/16 19:50; Start 08/29/16 at 21:00 Clonidine (Catapres) 0.1 mg ONCE ONCE PO Last administered on 08/29/16 22:46; Start 08/29/16 at 22:45; Stop 08/29/16 at 22:46; Status DC Potassium Chloride (KCl) 40 meq ONCE ONCE PO Last administered on 08/30/16 17 :58; Start 08/30/16 at 16:00; Stop 08/30/16 at 16:01; Status DC Potassium Chloride (KCl) 40 meq ONCE ONCE PO Last administered on 08/31/16 11 :22; Start 08/31/16 at 11:00; Stop 08/31/16 at 11:01; Status DC Enalaprilat (Vasotec Inj) 1.25 mg Q6H PRN IV PUSH SBP> OR = 180, DBP> OR = 100 ; Start 08/31/16 at 15:00 A/P Problem List: (1) Sepsis ICD Code: A41.9 Status: Acute (2) UTI (urinary tract infection) ICD Code: N39.0 Status: Acute Assessment and Plan Sepsis -UTI as source vs Possible early pneumonia although CXR was not impressive. -levaquin d/c yesterday and continues to do well. -clinically stable. -so far urine and blood cultures negative. -patient did have fevers but this is probably viral. -continue with current regimen. Altered mental status per patient's this is his baseline and he has been stable. -due to Dementia. Dementia -he seems to be at his baseline and per his he is at baseline -I will continue to monitor. DVT prophylaxison Lovenox. GI prophylaxis on pantoprazole. Discharge Planning patient stable for a SNF but discharge may be difficult due to funding. Problem Qualifiers (1) Sepsis: Qualified Code: A41.9 - Sepsis, due to unspecified organism (2) UTI (urinary tract infection): Qualified Code: N39.0 - Urinary tract infection without hematuria, site unspecified Tabatha Dee MD Sep 01, 2016 16:22
[2016-09-01] MEDS: ATORVASTATIN 40 MG TAB PO SCH (22:15)
[2016-09-01] MEDS: TERAZOSIN HCL 5 MG CAP PO SCH (22:15)
[2016-09-02] VITALS (9 sets, daily range): BP systolic 121–144; BP diastolic 78–82; PULSE 79–100; RESP 18–20; TEMP 97.1–99.6; O2SAT 95–98
[2016-09-02] MEDS: RESP: ALBUTEROL 2.5 MG/3 ML NEB (SCH) NEB ×2 (04:02→09:45)
[2016-09-02] MEDS: DONEPEZIL HCL 5 MG TAB PO SCH (05:35)
[2016-09-02 06:49] LABS: HEMATOCRIT 34.3 % (39.0-51.0); MEAN CORPUSCULAR HEMOGLOBIN 28.7 PG (27.0-34.0); MEAN CORPUSCULAR HGB CONC 34.6 % (32.0-36.0); PLATELET COUNT 138 TH/MM3 (150-450); RED BLOOD COUNT 4.13 MIL/MM3 (4.50-5.90); RED CELL DISTRIBUTION WIDTH 13.9 % (11.6-17.2); REVIEW FLAG FINAL; WHITE BLOOD COUNT 4.6 TH/MM3 (4.0-11.0)
[2016-09-02 07:26] LABS: BICARBONATE 26.4 MEQ/L (21.0-32.0); POTASSIUM 3.2 MEQ/L (3.5-5.1)
[2016-09-02] MEDS: CHOLECALCIFEROL (VIT D3) 1000 UNIT TAB PO SCH (10:00)
[2016-09-02] MEDS: ENOXAPARIN SODIUM 40 MG/0.4 ML SYRINGE SQ SCH (10:00)
[2016-09-02] MEDS: PANTOPRAZOLE SOD 20 MG DELAYED RELEASE TAB PO SCH (10:00)
[2016-09-02] MEDS: CLOPIDOGREL 75 MG TAB PO SCH (10:00)
[2016-09-02] MEDS: LISINOPRIL 20 MG TAB PO SCH (10:00)
[2016-09-02] MEDS: SODIUM CHLORIDE 0.9% FLUSH 5 ML FLUSH FLUSH SCH ×2 (10:00→22:18)
--- NOTE | 2016-09-02 10:43 | HHI.PR ---
Subjective Remarks f/u for fever patient had fever of 101.3 last night. d/w nurse since patient poor historian. she stated no issues. Patient denied any cough or pain. Patient able to tell me name and location and answer simple yes and no questions. Objective Vitals Vital Signs Date Time Temp Pulse Resp B/P Pulse Ox O2 Delivery O2 Flow Rate FiO2 09/02/16 09:47 95 09/02/16 08:00 97.6 100 20 139/82 97 09/02/16 04:00 98.8 98 19 131/78 96 09/02/16 00:00 99.6 95 18 144/78 97 09/01/16 20:28 94 09/01/16 20:00 101.3 89 19 145/81 98 09/01/16 15:50 99.2 96 20 119/74 92 09/01/16 15:39 94 Nasal Cannula 21 09/01/16 14:05 97 09/01/16 11:30 96.9 97 20 116/69 95 I/O 09/01/16 09/01/16 09/01/16 09/02/16 09/02/16 09/02/16 07:00 15:00 23:00 07:00 15:00 23:00 Intake Total 60 ml 600 ml 480 ml 240 ml 360 ml Output Total 800 ml 400 ml 350 ml 900 ml 250 ml Balance -740 ml 200 ml 130 ml -660 ml 110 ml Intake Oral 60 ml 600 ml 480 ml 240 ml 360 ml Output Urine Total 800 ml 400 ml 350 ml 900 ml 250 ml # Bowel Movements 0 1 Result Diagram: 09/02/16 0525 09/02/1625 Objective Remarks GENERAL: in NAD CARDIOVASCULAR: Regular rate and rhythm without murmurs, gallops, or rubs. RESPIRATORY: Breath sounds equal bilaterally. No accessory muscle use. GASTROINTESTINAL: Abdomen soft, non-tender, nondistended. MUSCULOSKELETAL: No cyanosis, or edema. BACK: Nontender without obvious deformity. No CVA tenderness. SKIN: no rashes noted. Medications and IVs Current Medications IV Flush 2 ml 2 ml UNSCH PRN IVF FLUSH AFTER USING IV ACCESS Last administered on 08/29/16t 01:58; Start 08/29/16 at 01:45; Stop 08/29/16 at 03:40; Status DC Sodium Chloride (NS 1000 ml Inj) 1,000 ml @ 125 mls/hr Q8H IV Last administered on 08/29/16 01:57; Start 08/29/16 at 01:32; Stop 08/29/16 at 06:52; Status DC Acetaminophen 650 mg 650 mg ONCE ONCE PO Last administered on 08/29/16 01:58; Start 08/29/16 at 01:45; Stop 08/29/16 at 01:46; Status DC Levofloxacin/ Dextrose (Levaquin 750 Mg Premix Inj) 150 ml @ 100 mls/hr ONCE ONCE IV Last administered on 08/29/16 01:58; Start 08/29/16 at 01:45; Stop at 03:14; Status DC Nitroglycerin (Nitroglycerin 2% Oint) 1 inch ONCE ONCE TOPICAL Last administered on 08/29/16 03:06; Start 08/29/16 at 02:30; Stop 08/29/16 at 02:31; Status DC IV Flush (NS Flush) 2 ml BID IVF ; Start 08/29/16 at 09:00; Stop 08/29/16 at 09:00 ; Status DC IV Flush (NS Flush) 2 ml UNSCH PRN IVF FLUSH AFTER USING IV ACCESS; Start at 03:45; Stop 08/29/16 at 04:21; Status DC IV Flush (NS Flush) 2 ml UNSCH PRN FLUSH FLUSH AFTER USING IV ACCESS; Start 08/29/16 at 04:15 IV Flush (NS Flush) 2 ml BID FLUSH Last administered on 09/02/16 10:00; Start 08/29/16 at 09:00 Ondansetron HCl (Zofran Inj) 4 mg Q6H PRN IVP NAUSEA OR VOMITING; Start at 04:15 Enoxaparin Sodium (Lovenox Inj) 40 mg Q24H SQ Last administered on 09/02/16 10 :00; Start 08/29/16 at 09:00 Naloxone HCl 0.4 mg 0.4 mg UNSCH PRN IV SEE LABEL COMMENTS; Start 08/29/16 at 04 :15 Levofloxacin/ Dextrose 150 ml @ 100 mls/hr Q48H IV ; Start 08/29/16 at 04:00; Status Cancel Levofloxacin/ Dextrose 150 ml @ 100 mls/hr Q36H IV ; Start 08/30/16 at 01:00; Status UNV Levofloxacin/ Dextrose (Levaquin 750 Mg Premix Inj) 150 ml @ 100 mls/hr Q48H IV ; Start 08/31/16 at 02:00; Status Cancel Albuterol/ Ipratropium (Duoneb Neb) 1 ampule ONCE ONCE NEB Last administered on 08/29/16 05:56; Start 08/29/16 at 05:45; Stop 08/29/16 at 05:46; Status DC Albuterol/ Ipratropium (Duoneb Neb) 1 ampule Q4HR NEB PRN NEB wheezing Last administered on 08/29/16 10:05; Start 08/29/16 at 07:45 Albuterol Sulfate 2.5 mg 2.5 mg Q6HR NEB NEB Last administered on 09/02/16 09 :45; Start 08/29/16 at 10:00; Stop 09/02/16 at 10:00; Status DC Levofloxacin/ Dextrose 150 ml @ 100 mls/hr Q24H IV Last administered on 02:26; Start 08/30/16 at 02:00; Stop 08/31/16 at 14:54; Status DC Sodium Chloride (NS 1000 ml Inj) 1,000 ml @ 125 mls/hr Q8H IV Last administered on 08/30/16 22:02; Start 08/29/16 at 08:45; Stop 08/31/16 at 10:41 ; Status DC Amlodipine Besylate (Norvasc) 10 mg DAILY PO Last administered on 09/02/16 10: 01; Start 08/29/16 at 09:00 Atorvastatin Calcium (Lipitor) 40 mg HS PO Last administered on 09/01/16 22:15 ; Start 08/29/16 at 21:00 Cholecalciferol (Vitamin D3) 2,000 units DAILY PO Last administered on 10:00; Start 08/29/16 at 09:00 Clopidogrel Bisulfate (Plavix) 75 mg DAILY PO Last administered on 09/02/16 10 :00; Start 08/29/16 at 09:00 Donepezil HCl (Aricept) 5 mg DAILY@0600 PO Last administered on 09/02/16 05:35 ; Start 08/30/16 at 06:00 Lisinopril (Prinivil) 40 mg DAILY PO Last administered on 09/02/16 10:00; Start 08/29/16 at 09:00 Pantoprazole Sodium (Protonix) 20 mg DAILY PO Last administered on 09/02/16 10 :00; Start 08/29/16 at 09:00 Terazosin HCl (Hytrin) 10 mg HS PO Last administered on 09/01/16 22:15; Start 08/29/16 at 21:00 Clonidine (Catapres) 0.1 mg ONCE ONCE PO Last administered on 08/29/16 22:46; Start 08/29/16 at 22:45; Stop 08/29/16 at 22:46; Status DC Potassium Chloride (KCl) 40 meq ONCE ONCE PO Last administered on 08/30/16 17 :58; Start 08/30/16 at 16:00; Stop 08/30/16 at 16:01; Status DC Potassium Chloride (KCl) 40 meq ONCE ONCE PO Last administered on 08/31/16 11 :22; Start 08/31/16 at 11:00; Stop 08/31/16 at 11:01; Status DC Enalaprilat (Vasotec Inj) 1.25 mg Q6H PRN IV PUSH SBP> OR = 180, DBP> OR = 100 ; Start 08/31/16 at 15:00 A/P Problem List: (1) Sepsis ICD Code: A41.9 Status: Acute (2) UTI (urinary tract infection) ICD Code: N39.0 Status: Acute Assessment and Plan Sepsis -UTI as source vs Possible early pneumonia although CXR was not impressive. -levaquin d/c 08/31 and now developing fevers ago, -so far urine and blood cultures negative. -will need to repeat fever work up and continue to monitor. -clinically he is stable. Altered mental status per patient's this is his baseline and he has been stable. -due to Dementia. Dementia -he seems to be at his baseline and per his he is at baseline -I will continue to monitor. DVT prophylaxison Lovenox. GI prophylaxis on pantoprazole. Discharge Planning patient now developed another fever. will need to stay in hospital for at least 2 days for work up, treatment and monitoring. once stable can go to SNF. d/w his nurse. Problem Qualifiers (1) Sepsis: Qualified Code: A41.9 - Sepsis, due to unspecified organism (2) UTI (urinary tract infection): Qualified Code: N39.0 - Urinary tract infection without hematuria, site unspecified Tabatha Dee MD Sep 02, 2016 10:43
[2016-09-02 12:14] LABS: BLOOD, URINE TRACE (NEG); COMMENT (UR) CATH-CULT NOT IND; CULTURE IF INDICATED CATH CULTURE NOT IND; GLUCOSE,URINE NEG (NEG); KETONE, URINE NEG (NEG); MUCUS URINE FEW /lpf (OCC); NITRITE,URINE NEG (NEG); PH, URINE 5.5 (5.0-8.5); SQUAMOUS EPITHELIAL CELL URINE <1 /hpf (0-5); URINE COLOR YELLOW (YELLW/STRAW)
--- NOTE | 2016-09-02 12:58 | RADRPT ---
EXAM DATE/TIME: 09/02/2016 12:16 [facility] COMPARISON: No previous studies available for comparison. INDICATIONS : Fever MEDICAL HISTORY : Cardiovascular disease. Hypertension Gastroesophageal reflux disease. CVA SURGICAL HISTORY : None. ENCOUNTER: Subsequent ACUITY: 4 - 6 days PAIN SCORE: 0/10 LOCATION: chest FINDINGS: PA and lateral views of the chest demonstrate the lungs to be symmetrically aerated without evidence of mass, infiltrate or effusion. The cardiomediastinal contours are unremarkable. Osseous structure s are intact. CONCLUSION: No acute disease. Aj Kim MD FACR on September 02, 2016 at 12:56 Board Certified Radiologist. This report was verified electronically.
[2016-09-02] MEDS: ATORVASTATIN 40 MG TAB PO SCH (22:18)
[2016-09-02] MEDS: TERAZOSIN HCL 5 MG CAP PO SCH (22:18)
[2016-09-03] VITALS (9 sets, daily range): BP systolic 100–133; BP diastolic 60–86; PULSE 78–98; RESP 16–20; TEMP 96.9–98.7; O2SAT 91–98
[2016-09-03] MEDS: DONEPEZIL HCL 5 MG TAB PO SCH (05:37)
[2016-09-03 08:50] LABS: MEAN CORPUSCULAR HEMOGLOBIN 28.7 PG (27.0-34.0); PLATELET COUNT 161 TH/MM3 (150-450); RED BLOOD COUNT 4.14 MIL/MM3 (4.50-5.90); RED CELL DISTRIBUTION WIDTH 13.8 % (11.6-17.2); REVIEW FLAG FINAL; WHITE BLOOD COUNT 4.7 TH/MM3 (4.0-11.0)
[2016-09-03 08:57] LABS: BICARBONATE 28.2 MEQ/L (21.0-32.0); POTASSIUM 3.5 MEQ/L (3.5-5.1)
[2016-09-03] MEDS: CLOPIDOGREL 75 MG TAB PO SCH (09:09)
[2016-09-03] MEDS: LISINOPRIL 20 MG TAB PO SCH (09:09)
[2016-09-03] MEDS: ENOXAPARIN SODIUM 40 MG/0.4 ML SYRINGE SQ SCH (09:09)
[2016-09-03] MEDS: SODIUM CHLORIDE 0.9% FLUSH 5 ML FLUSH FLUSH SCH ×2 (09:09→21:41)
[2016-09-03] MEDS: CHOLECALCIFEROL (VIT D3) 1000 UNIT TAB PO SCH (09:09)
[2016-09-03] MEDS: PANTOPRAZOLE SOD 20 MG DELAYED RELEASE TAB PO SCH (09:09)
--- NOTE | 2016-09-03 10:34 | HHI.PR ---
Subjective Remarks f/u for fevers patient has been afebrile. no issues overnight. he has no complaints. Denied any SOB or pain. Objective Vitals Vital Signs Date Time Temp Pulse Resp B/P Pulse Ox O2 Delivery O2 Flow Rate FiO2 09/03/16 08:00 97.6 98 20 122/86 91 09/03/16 04:00 98.1 85 18 133/79 92 09/03/16 02:09 95 Nasal Cannula 09/03/16 00:00 98.7 78 18 130/72 95 09/02/16 20:05 83 09/02/16 20:00 99.0 90 19 121/78 95 09/02/16 16:00 98.5 88 18 122/78 98 09/02/16 12:00 97.1 90 20 142/78 97 I/O 09/02/16 09/02/16 09/02/16 09/03/16 09/03/16 09/03/16 07:00 15:00 23:00 07:00 15:00 23:00 Intake Total 240 ml 1080 ml 240 ml 360 ml Output Total 900 ml 450 ml 450 ml Balance -660 ml 630 ml -210 ml 360 ml Intake Oral 240 ml 1080 ml 240 ml 360 ml Output Urine Total 900 ml 450 ml 450 ml # Bowel Movements 1 Result Diagram: 09/03/16 0809 09/03/16 0809 Objective Remarks GENERAL: in NAD CARDIOVASCULAR: Regular rate and rhythm without murmurs, gallops, or rubs. RESPIRATORY: Breath sounds equal bilaterally. No accessory muscle use. GASTROINTESTINAL: Abdomen soft, non-tender, nondistended. MUSCULOSKELETAL: No cyanosis, or edema. BACK: Nontender without obvious deformity. No CVA tenderness. SKIN: no rashes noted. Medications and IVs Current Medications IV Flush 2 ml 2 ml UNSCH PRN IVF FLUSH AFTER USING IV ACCESS Last administered on 08/29/16 01:58; Start 08/29/16 at 01:45; Stop 08/29/16 at 03:40; Status DC Sodium Chloride (NS 1000 ml Inj) 1,000 ml @ 125 mls/hr Q8H IV Last administered on 08/29/16 01:57; Start 08/29/16 at 01:32; Stop 08/29/16 at 06:52; Status DC Acetaminophen 650 mg 650 mg ONCE ONCE PO Last administered on 08/29/16 01:58; Start 08/29/16 at 01:45; Stop 08/29/16 at 01:46; Status DC Levofloxacin/ Dextrose (Levaquin 750 Mg Premix Inj) 150 ml @ 100 mls/hr ONCE ONCE IV Last administered on 08/29/16 01:58; Start 08/29/16 at 01:45; Stop at 03:14; Status DC Nitroglycerin (Nitroglycerin 2% Oint) 1 inch ONCE ONCE TOPICAL Last administered on 08/29/16 03:06; Start 08/29/16 at 02:30; Stop 08/29/16 at 02:31; Status DC IV Flush (NS Flush) 2 ml BID IVF ; Start 08/29/16 at 09:00; Stop 08/29/16 at 09:00 ; Status DC IV Flush (NS Flush) 2 ml UNSCH PRN IVF FLUSH AFTER USING IV ACCESS; Start at 03:45; Stop 08/29/16 at 04:21; Status DC IV Flush (NS Flush) 2 ml UNSCH PRN FLUSH FLUSH AFTER USING IV ACCESS; Start 08/29/16 at 04:15 IV Flush (NS Flush) 2 ml BID FLUSH Last administered on 09/03/16 09:09; Start 08/29/16 at 09:00 Ondansetron HCl (Zofran Inj) 4 mg Q6H PRN IVP NAUSEA OR VOMITING; Start at 04:15 Enoxaparin Sodium (Lovenox Inj) 40 mg Q24H SQ Last administered on 09/03/16 09 :09; Start 08/29/16 at 09:00 Naloxone HCl 0.4 mg 0.4 mg UNSCH PRN IV SEE LABEL COMMENTS; Start 08/29/16 at 04 :15 Levofloxacin/ Dextrose 150 ml @ 100 mls/hr Q48H IV ; Start 08/29/16 at 04:00; Status Cancel Levofloxacin/ Dextrose 150 ml @ 100 mls/hr Q36H IV ; Start 08/30/16 at 01:00; Status UNV Levofloxacin/ Dextrose (Levaquin 750 Mg Premix Inj) 150 ml @ 100 mls/hr Q48H IV ; Start 08/31/16 at 02:00; Status Cancel Albuterol/ Ipratropium (Duoneb Neb) 1 ampule ONCE ONCE NEB Last administered on 08/29/16 05:56; Start 08/29/16 at 05:45; Stop 08/29/16 at 05:46; Status DC Albuterol/ Ipratropium (Duoneb Neb) 1 ampule Q4HR NEB PRN NEB wheezing Last administered on 08/29/16 10:05; Start 08/29/16 at 07:45 Albuterol Sulfate 2.5 mg 2.5 mg Q6HR NEB NEB Last administered on 09/02/16 09 :45; Start 08/29/16 at 10:00; Stop 09/02/16 at 10:00; Status DC Levofloxacin/ Dextrose 150 ml @ 100 mls/hr Q24H IV Last administered on 02:26; Start 08/30/16 at 02:00; Stop 08/31/16 at 14:54; Status DC Sodium Chloride (NS 1000 ml Inj) 1,000 ml @ 125 mls/hr Q8H IV Last administered on 08/30/16 22:02; Start 08/29/16 at 08:45; Stop 08/31/16 at 10:41 ; Status DC Amlodipine Besylate (Norvasc) 10 mg DAILY PO Last administered on 09/03/16 09: 09; Start 08/29/16 at 09:00 Atorvastatin Calcium (Lipitor) 40 mg HS PO Last administered on 09/02/16 22:18 ; Start 08/29/16 at 21:00 Cholecalciferol (Vitamin D3) 2,000 units DAILY PO Last administered on 09:09; Start 08/29/16 at 09:00 Clopidogrel Bisulfate (Plavix) 75 mg DAILY PO Last administered on 09/03/16 09 :09; Start 08/29/16 at 09:00 Donepezil HCl (Aricept) 5 mg DAILY@0600 PO Last administered on 09/03/16 05:37 ; Start 08/30/16 at 06:00 Lisinopril (Prinivil) 40 mg DAILY PO Last administered on 09/03/16 09:09; Start 08/29/16 at 09:00 Pantoprazole Sodium (Protonix) 20 mg DAILY PO Last administered on 09/03/16 09 :09; Start 08/29/16 at 09:00 Terazosin HCl (Hytrin) 10 mg HS PO Last administered on 09/02/16 22:18; Start 08/29/16 at 21:00 Clonidine (Catapres) 0.1 mg ONCE ONCE PO Last administered on 08/29/16 22:46; Start 08/29/16 at 22:45; Stop 08/29/16 at 22:46; Status DC Potassium Chloride (KCl) 40 meq ONCE ONCE PO Last administered on 08/30/16 17 :58; Start 08/30/16 at 16:00; Stop 08/30/16 at 16:01; Status DC Potassium Chloride (KCl) 40 meq ONCE ONCE PO Last administered on 08/31/16 11 :22; Start 08/31/16 at 11:00; Stop 08/31/16 at 11:01; Status DC Enalaprilat (Vasotec Inj) 1.25 mg Q6H PRN IV PUSH SBP> OR = 180, DBP> OR = 100 ; Start 08/31/16 at 15:00 A/P Problem List: (1) Sepsis ICD Code: A41.9 Status: Acute (2) UTI (urinary tract infection) ICD Code: N39.0 Status: Acute Assessment and Plan Fevers -unknown source. -maybe viral vs atelectasis. -CXR negative and UA negative. no lesions noted. -blood cultures obtain. -no source of infection. -previous treated empirically for Sepsis -UTI as source vs Possible early pneumonia although CXR was not impressive. -levaquin d/c 08/31 and now developing fevers ago, -so far urine and blood cultures negative. Altered mental status per patient's this is his baseline and he has been stable. -due to Dementia. Dementia -he seems to be at his baseline and per his he is at baseline -I will continue to monitor. DVT prophylaxison Lovenox. GI prophylaxis on pantoprazole. Discharge Planning patient can be d/c once BC are negative for 48 hours. He already has a SNF placement. Most likely can be d/c tomorrow. Problem Qualifiers (1) Sepsis: Qualified Code: A41.9 - Sepsis, due to unspecified organism (2) UTI (urinary tract infection): Qualified Code: N39.0 - Urinary tract infection without hematuria, site unspecified Tabatha Dee MD Sep 03, 2016 10:34
[2016-09-03] MEDS: ATORVASTATIN 40 MG TAB PO SCH (21:41)
[2016-09-03] MEDS: TERAZOSIN HCL 5 MG CAP PO SCH (21:41)
[2016-09-04] VITALS (7 sets, daily range): BP systolic 110–148; BP diastolic 71–92; PULSE 79–97; RESP 16–20; TEMP 96.8–98.5; O2SAT 94–98
[2016-09-04] MEDS: DONEPEZIL HCL 5 MG TAB PO SCH (05:48)
[2016-09-04 07:48] LABS: HEMATOCRIT 35.8 % (39.0-51.0); MEAN CELL VOLUME 82.9 FL (80.0-100.0); MEAN CORPUSCULAR HEMOGLOBIN 28.4 PG (27.0-34.0); MEAN CORPUSCULAR HGB CONC 34.2 % (32.0-36.0); PLATELET COUNT 199 TH/MM3 (150-450); RED BLOOD COUNT 4.32 MIL/MM3 (4.50-5.90); RED CELL DISTRIBUTION WIDTH 13.7 % (11.6-17.2); REVIEW FLAG FINAL; WHITE BLOOD COUNT 5.3 TH/MM3 (4.0-11.0)
[2016-09-04 08:16] LABS: POTASSIUM 3.4 MEQ/L (3.5-5.1)
--- NOTE | 2016-09-04 10:43 | HHI.DCPOC ---
Discharge Care Plan Diagnosis: (1) HTN (hypertension) (2) Fever (3) SIRS (systemic inflammatory response syndrome) Goals to Promote Your Health * To prevent worsening of your condition and complications * To maintain your health at the optimal level Directions to Meet Your Goals Take your medications as prescribed Follow your dietary instruction Follow activity as directed Keep your appointments as scheduled Take your immunizations and boosters as scheduled If your symptoms worsen call your PCP, if no PCP go to Urgent Care Center or Emergency Room Smoking is Dangerous to Your Health. Avoid second hand smoke Call the 24-hour hour crisis hotline for domestic abuse at Tabatha Dee MD Sep 04, 2016 10:43
--- NOTE | 2016-09-04 10:43 | HHI.DS ---
Discharge Summary Admission Date Aug 29, 2016 at 03:37 Discharge Date: Sep 04, 2016 Admitting Diagnosis sepsis; uti; htn (1) SIRS (systemic inflammatory response syndrome) ICD Code: R65.10 Diagnosis: Principal (2) Fever ICD Code: R50.9 Diagnosis: Principal (3) Dementia ICD Code: F03.90 Diagnosis: Secondary (4) HTN (hypertension) ICD Code: I10 Diagnosis: Secondary Procedures see hospital course Brief History - From Admission History from patient, ER physician communication, and review of medical records. Patient is an elderly gentleman with prior history of CVA. He seems to be forgetful although he tries to answer questions by stating yes or no. He claims that his brought him here because he asked her to do so. However, as per triage notes, patient was brought in by ambulance personnel. Patient is really not able to answer reliably. In the emergency room, patient was found to have fever of 102.3. He was also noted to be tachycardic in the 110s to 120s. At the time of my exam, he was also noted to have cough. Which was dry and nonproductive. The nursing staff also reported to me that EMS personnel stated patient was having dry nonproductive cough at home. Apart from that, patient denies any nausea/vomiting/diarrhea. He denies any urinary burning or pain on urination. Denies seeing any blood in his stool or in his urine. Again, unsure how reliable his answers are. Patient denies any recent falls or syncope. There was no report of that per EMS as well. While in emergency room, patient was quite confused and tried to get out of bed and walk out of the hospital. There for a sitter was ordered. Per ER report, patient's called ambulance because patient has been confused. "noted that patient was weaker today and had urinary incontinence. Patient has history of hypertension CVA and dementia. No reported history of CAD or diabetes. Patient has had new congested cough without reported hemoptysis. No reported complaint of shortness of breath or chest pain or abdominal pain." CBC/BMP: 09/04/1644 09/04/16543 Significant Findings Laboratory Tests Test 09/02/16 09/02/16 09/03/16 09/04/16 05:25 10:35 08:09 05:44 Red Blood Count 4.13 MIL/MM3 4.14 MIL/MM3 4.32 MIL/MM3 (4.50-5.90) (4.50-5.90) (4.50-5.90) Hemoglobin 11.8 GM/DL 11.9 GM/DL 12.3 GM/DL (13.0-17.0) (13.0-17.0) (13.0-17.0) Hematocrit 34.3 % 34.0 % 35.8 % (39.0-51.0) (39.0-51.0) (39.0-51.0) Platelet Count 138 TH/MM3 (150-450) Potassium Level 3.2 MEQ/L 3.4 MEQ/L (3.5-5.1) (3.5-5.1) Calcium Level 8.2 MG/DL 8.1 MG/DL 8.1 MG/DL (8.5-10.1) (8.5-10.1) (8.5-10.1) Urine Occult Blood TRACE (NEG) Urine Mucus FEW /lpf (OCC) Blood Urea Nitrogen 21 MG/DL (7-18) Imaging Last Impressions Chest X-Ray 09/02/16 0000 Signed Impressions: Service Date/Time: Friday, September 02, 2016 12:16 - CONCLUSION: No acute disease. Aj Kim MD FACR Head CT 08/29/16 0132 Signed Impressions: Service Date/Time: August 02:20 - CONCLUSION: 1. Stable chronic changes with some periventricular small vessel ischemic demyelination and bilateral old lacunar type infarcts. 2. No acute intracranial process. Andrew Anderson MD PE at Discharge GENERAL: in NAD CARDIOVASCULAR: Regular rate and rhythm without murmurs, gallops, or rubs. RESPIRATORY: Breath sounds equal bilaterally. No accessory muscle use. GASTROINTESTINAL: Abdomen soft, non-tender, nondistended. MUSCULOSKELETAL: No cyanosis, or edema. BACK: Nontender without obvious deformity. No CVA tenderness. SKIN: no rashes noted. Pt update on day of discharge f/u for fevers fevers resolved for at least 48 hours. Patient has no complaints. AAO X 2. Knows name and location. no acute events. Hospital Course SIRS/Fevers -unknown source. -most likely viral. -initally treated for a questionable UTI based on UA with Levaquin. -CXR negative and UA negative. -blood cultures obtain and cultures was negative. -no source of infection so levaquin d/c -clinically was doing well off antibiotics but developed another fever so fever work obtained again. No antibiotics given since no infectious source. -cxr negative,UA negative. and blood cultures negative for at least 48 hours. -he continued to do well clinically. Dementia thought initially to have AMS but per patient's this is his baseline and he has been stable. Pt Condition on Discharge: Stable Discharge Disposition: Discharge to SNF Discharge Time: <= 30 minutes Discharge Instructions DIET: Follow Instructions for: Heart Healthy Diet Activities you can perform: Regular-No Restrictions Follow up Referrals: PCP Follow-up - 1 Week Continued Medications: Amlodipine (Amlodipine) 10 Mg Tab 10 MG PO DAILY Blood Pressure Management #30 Ref 0 TAB Atorvastatin (Atorvastatin) 80 Mg Tab 40 MG PO HS Cholesterol Management #30 Ref 0 TAB Cholecalciferol (Vitamin D-1000) 1,000 Unit Tab 2000 UNITS PO DAILY Nutritional Supplement #1 Ref 0 BOTTLE Clopidogrel (Clopidogrel) 75 Mg Tab 75 MG PO DAILY Blood Clot Prevention #30 Ref 0 TAB Donepezil (Donepezil) 5 Mg Tab 5 MG PO DAILY@0600 Dementia #30 Ref 0 TAB Lisinopril (Lisinopril) 40 Mg Tab 40 MG PO DAILY Blood Pressure Management #30 Ref 0 TAB Omeprazole (Omeprazole) 20 Mg Tab 20 MG PO DAILY #30 Ref 0 TAB Terazosin (Terazosin) 10 Mg Cap 10 MG PO HS #30 Ref 0 CAP Tabatha Dee MD Sep 04, 2016 10:43
[2016-09-04] MEDS: CLOPIDOGREL 75 MG TAB PO SCH (12:18)
[2016-09-04] MEDS: LISINOPRIL 20 MG TAB PO SCH (12:18)
[2016-09-04] MEDS: PANTOPRAZOLE SOD 20 MG DELAYED RELEASE TAB PO SCH (12:19)
[2016-09-04] MEDS: CHOLECALCIFEROL (VIT D3) 1000 UNIT TAB PO SCH (12:19)
[2016-09-04] MEDS: ENOXAPARIN SODIUM 40 MG/0.4 ML SYRINGE SQ SCH (12:19)
[2016-09-04] MEDS: SODIUM CHLORIDE 0.9% FLUSH 5 ML FLUSH FLUSH SCH (12:19)
== END 2016-09-04 18:05 | DRG 872 ==
LOC: NEPC 00:51 → NEDA 03:37 → NEDH 07:30 → HOCA 17:29
PROVIDERS: ADMIT Family Medicine; ATTEND Family Medicine
DX: A41.9 Sepsis, unspecified organism (principal); I69.351 Hemiplegia and hemiparesis following cerebral infarction affecting right dominant side; F03.90 Unspecified dementia, unspecified severity, without behavioral disturbance, psychotic disturbance, mood disturbance, and anxiety; N39.0 Urinary tract infection, site not specified; J98.11 Atelectasis; E86.0 Dehydration; I10 Essential (primary) hypertension; E78.5 Hyperlipidemia, unspecified; R32 Unspecified urinary incontinence; Z86.14 Personal history of Methicillin resistant Staphylococcus aureus infection; F17.210 Nicotine dependence, cigarettes, uncomplicated; K21.9 Gastro-esophageal reflux disease without esophagitis; E78.00 Pure hypercholesterolemia, unspecified
CPT/HCPCS: 70450; 71010; 71020; 80048; 80053; 81001; 82550; 82552; 83605; 83735; 84484; 85025; 85027; 85610; 85730; 87040; 87086; 87804; 93005; 94640; 94664; 96365; J1650; J1956; J7030; J7613

== ENCOUNTER 2018-04-06 11:11 | Inpatient (IN) ==
[2018-04-06 12:12] LABS: Baso % (Auto) 0.5 % (0.0-2.0); Eos # (Auto) 0.1 th/mm3 (0.0-0.4); Eos % (Auto) 1.4 % (0.0-4.0); Hemoglobin 15.3 gm/dL (13.0-17.0); Lymph # (Auto) 1.4 th/mm3 (1.0-4.8); Lymph % (Auto) 16.1 % (9.0-44.0); Mean Corpuscular HGB Conc 32.6 % (32.0-36.0); Mean Corpuscular Hemoglobin 30.2 pg (27.0-34.0); Mean Corpuscular Volume 92.8 fL (80.0-100.0); Mean Platelet Volume 11.8 fL (7.0-11.0); Mono # (Auto) 0.5 th/mm3 (0.0-0.9); Mono % (Auto) 5.6 % (0.0-8.0); Neut # (Auto) 6.4 th/mm3 (1.8-7.7); Neut % (Auto) 76.4 % (16.0-70.0); Platelet Count 100 th/mm3 (150-450); Red Blood Count 5.06 mil/mm3 (4.50-5.90); Red Cell Distribution Width 14.5 % (11.6-17.2); White Blood Count 8.4 th/mm3 (4.0-11.0)
[2018-04-06 12:24] LABS: Activated Partial Thrombo Time 27.1 sec (24.3-30.1); INR 1.2 Ratio
[2018-04-06 12:24] LABS: Bilirubin,Urine Negative (Negative); Clarity,Urine Clear (Clear); Color,Urine Yellow (Yellw/Straw); Glucose,Urine (UA) Negative (Negative); Hyaline Casts,Urine 1 /lpf (0-3); Leukocyte Esterase,Urine Negative (Negative); Mucus,Urine Few /lpf (Occasional); Nitrite,Urine Negative (Negative); Specific Gravity,Urine 1.031 (1.002-1.035); Squamous Epithelial Cell,Urine 1 /hpf (0-5)
[2018-04-06 12:34] LABS: Alanine Aminotransferase 25 U/L (12-78); Albumin 2.9 g/dL (3.4-5.0); Alkaline Phosphatase 66 U/L (45-117); Anion Gap 5 meq/L (5-15); Aspartate Aminotransferase 20 U/L (15-37); Blood Urea Nitrogen 42 mg/dL (7-18); Chloride 133 meq/L (98-107); Creatine Kinase 222 U/L (39-308); Glomerular Filtration Rate 68 mL/min (>89); Glucose,Random 103 mg/dL (74-106); Potassium 4.1 meq/L (3.5-5.1); Total Protein 7.2 g/dL (6.4-8.2)
--- NOTE | 2018-04-06 12:35 | XR ---
EXAM DATE: 04/06/2018 11:39 AM EDT AGE/SEX: 68 years / Male INDICATIONS: Cough. CLINICAL DATA: This is the patient's initial encounter. Patient reports that signs and symptoms have been present for 1 day and indicates a pain score of 0/10. MEDICAL/SURGICAL HISTORY: Cerebrovascular disease. Dementia. None. COMPARISON: [facility] – [place], CHEST PA & LAT, 09/02/2016. . FINDINGS: A single AP view of the chest demonstrates the lungs to be symmetrically aerated without evidence of mass, infiltrate or effusion. The cardiomediastinal contours are unremarkable. Osseous structures a re intact. CONCLUSION: 1. No acute abnormality or significant interval change. Electronically signed by: Arslan Lopez MD 04/06/2018 12:33 PM EDT
[2018-04-06 12:39] LABS: Sodium 163 meq/L (136-145)
--- NOTE | 2018-04-06 13:11 | CT ---
EXAM DATE: 04/06/2018 11:44 AM EDT AGE/SEX: 68 years / Male INDICATIONS: Altered mental status CLINICAL DATA: This is the patient's initial encounter. Patient reports that signs and symptoms have been present for 1 day and indicates a pain score of 0/10. MEDICAL/SURGICAL HISTORY: Cerebrovascular disease. Hypertension. Dementia. None. RADIATION DOSE: 35.85 CTDI (mGy) COMPARISON: [facility] – [place], CT HEAD W/O CONTRAST, 03/23/2018. . TECHNIQUE: CT of the head without contrast. Using automated exposure control and adjustment of the mA and/or kV according to patient size, radiation dose was kept as low as reasonably achievable to ob tain optimal diagnostic quality images. DICOM format image data is available electronically for revi ew and comparison. FINDINGS: There is diffuse atrophy and remote basal ganglia and thalamic lacunar infarcts as well as a pontine lacunar infarct. There is patchy periventricular white matter disease. No fractures. No hemorrhage or mass. CONCLUSION: 1. Atrophy and white matter disease. . Electronically signed by: Yoshi Baca MD 04/06/2018 1:09 PM EDT
[2018-04-06] MEDS ORDERED: Acetaminophen 325 MG Tablet PO PRN (14:51)
--- NOTE | 2018-04-06 15:18 | ED ---
HPI General Chief complaint: Altered Mental Status Stated complaint: Alter mental Time Seen by Provider: 04/06/18 11:31 Source: family and EMS Mode of arrival: EMS Limitations: altered mental status History of Present Illness HPI narrative: Patient is a 68-year-old male brought in by his. Per EMS, family states he has not been eating or drinking for the past week. EMS states that he has a gaze preference to the right. Patient answers a few questions with yes or no and knows his name. He provides very little other history. Related Data Home Medications Medication Instructions Recorded Confirmed amlodipine 10 mg PO DAILY 04/06/18 04/06/18 clopidogrel 75 mg PO DAILY 04/06/18 04/06/18 lisinopril 40 mg PO DAILY 04/06/18 04/06/18 spironolactone 25 mg PO DAILY 04/06/18 04/06/18 Allergies Allergy/AdvReac Type Severity Reaction Status Date / Time *MDRO Multi-Drug Resistant AdvReac Unknown Blister Uncoded 04/06/18 11:34 Organism Review of Systems ROS Unobtainable ROS Unobtainable: unobtainable due to mental status PMFSH Medical History Medical History Hyperlipemia (Acute) Hypertension (Acute) CVA (cerebral vascular accident) (Acute) Dementia (Acute) Social History Social History Substance History: No History of Abuse Second Hand Smoke Exposure: No Smoking Status: Former smoker Tobacco Type: Cigarettes How Often Do You Have a Drink Containing Alcohol: Monthly or less Recent Travel in [facility] within the Last 8 Weeks: No Recent Out of Country Travel within the Last 8 Weeks: No Immunization History Tetanus Immunization: <5 Years Exam Narrative Exam Narrative: GENERAL: Awake and alert, but confused. SKIN: Focused skin assessment warm/dry, tenting of the skin. No wounds or signs of infection. HEAD: Atraumatic. Normocephalic. EYES: Pupils equal and round. No scleral icterus. Extraocular movements intact. ENT: Dry mucous membranes. NECK: Trachea midline. No JVD. CARDIOVASCULAR: Regular rate and rhythm. No murmur appreciated. RESPIRATORY: No accessory muscle use. Clear to auscultation. Breath sounds equal bilaterally. GASTROINTESTINAL: Abdomen soft, non-tender, nondistended. Hepatic and splenic margins not palpable. MUSCULOSKELETAL: No obvious deformities. No clubbing. No cyanosis. No edema. NEUROLOGICAL: Awake and alert, but confused. No obvious cranial nerve deficits. Motor grossly within normal limits. Course Initial Documented Vital Signs Temperature 98.9 F 04/06/18 11:36 Pulse Rate 79 04/06/18 11:36 Respiratory Rate 22 04/06/18 11:36 Blood Pressure 134/89 04/06/18 11:36 Pulse Oximetry 95 04/06/18 11:36 Last Documented Vital Signs Temperature 98.9 F 04/06/18 11:36 Pulse Rate 85 04/06/18 15:32 Respiratory Rate 19 04/06/18 15:32 Blood Pressure 144/97 H 04/06/18 15:32 Pulse Oximetry 98 04/06/18 15:32 Medical Decision Making MDM Narrative Medical decision making narrative: She is a 68-year-old male who due to altered mental status. Exam shows dry mucous membranes. IV established,. Labs show a sodium level of 163. Patient given IV fluids. He will be admitted for further management. CT head performed shows no acute abnormalities. Medical Screen Exam Complete: Yes Emergency Medical Condition: Yes Differential Diagnosis Differential Diagnosis: Dehydration versus CVA versus electrolyte abnormality versus infection Medical Records Medical records reviewed: Yes I reviewed the patient's medical records. Lab Data Lab results reviewed: Yes I reviewed the patient's lab results. Result diagrams: 04/06/18 11:49 04/06/18 11:49 Lab Results 04/06/18 04/06/18 04/06/18 Range/Units 11:49 11:49 11:49 WBC 8.4 (4.0-11.0) th/mm3 RBC 5.06 (4.50-5.90) mil/mm3 Hgb 15.3 (13.0-17.0) gm/dL Hct 47.0 (39.0-51.0) % MCV 92.8 (80.0-100.0) fL MCH 30.2 (27.0-34.0) pg MCHC 32.6 (32.0-36.0) % RDW 14.5 (11.6-17.2) % Plt Count 100 L D (150-450) th/mm3 MPV 11.8 H (7.0-11.0) fL Neut % (Auto) 76.4 H (16.0-70.0) % Lymph % (Auto) 16.1 (9.0-44.0) % [place] % (Auto) 5.6 (0.0-8.0) % Eos % (Auto) 1.4 (0.0-4.0) % Baso % (Auto) 0.5 (0.0-2.0) % Neut # (Auto) 6.4 (1.8-7.7) th/mm3 Lymph # (Auto) 1.4 (1.0-4.8) th/mm3 [place] # (Auto) 0.5 (0.0-0.9) th/mm3 Eos # (Auto) 0.1 (0.0-0.4) th/mm3 Baso # (Auto) 0.0 (0.0-0.2) th/mm3 WBC Differential . Differential Comment Auto diff final PT 12.0 H (9.8-11.6) sec INR 1.2 Ratio APTT 27.1 (24.3-30.1) sec Sodium 163 H* (136-145) meq/L Potassium 4.1 (3.5-5.1) meq/L Chloride 133 H (98-107) meq/L Carbon Dioxide 25.0 (21.0-32.0) meq/L Anion Gap 5 (5-15) meq/L BUN 42 H (7-18) mg/dL Creatinine 1.28 (0.60-1.30) mg/dL Estimated GFR 68 L (>89) mL/min Random Glucose 103 (74-106) mg/dL Calcium 8.0 L (8.5-10.1) mg/dL Total Bilirubin 1.1 H (0.2-1.0) mg/dL AST 20 (15-37) U/L ALT 25 (12-78) U/L Alkaline Phosphatase 66 (45-117) U/L Total Creatine Kinase 222 (39-308) U/L Troponin I Less than 0.02 L (0.02-0.05) ng/mL Total Protein 7.2 (6.4-8.2) g/dL Albumin 2.9 L (3.4-5.0) g/dL Urine Color (Yellw/Straw) Urine Clarity (Clear) Urine pH (5.0-8.5) Ur Specific [place] (1.002-1.035) Urine Protein (Neg-Trace) mg/dL Urine Glucose (UA) (Negative) mg/dL Urine Ketones (Negative) mg/dL Urine Occult Blood (Negative) Urine Nitrate (Negative) Urine Bilirubin (Negative) Urine Urobilinogen (Less than 2) mg/dL Ur Leukocyte Esterase (Negative) Urine RBC (0-3) /hpf Urine WBC (0-5) /hpf Ur Squamous Epith Cells (0-5) /hpf Hyaline Casts (0-3) /lpf Urine Mucus (Occasional) /lpf Micro UA Comment Ur Microscopic Review Urine Culture Comments 04/06/18 Range/Units 12:00 WBC (4.0-11.0) th/mm3 RBC (4.50-5.90) mil/mm3 Hgb (13.0-17.0) gm/dL Hct (39.0-51.0) % MCV (80.0-100.0) fL MCH (27.0-34.0) pg MCHC (32.0-36.0) % RDW (11.6-17.2) % Plt Count (150-450) th/mm3 MPV (7.0-11.0) fL Neut % (Auto) (16.0-70.0) % Lymph % (Auto) (9.0-44.0) % [place] % (Auto) (0.0-8.0) % Eos % (Auto) (0.0-4.0) % Baso % (Auto) (0.0-2.0) % Neut # (Auto) (1.8-7.7) th/mm3 Lymph # (Auto) (1.0-4.8) th/mm3 [place] # (Auto) (0.0-0.9) th/mm3 Eos # (Auto) (0.0-0.4) th/mm3 Baso # (Auto) (0.0-0.2) th/mm3 WBC Differential Differential Comment PT (9.8-11.6) sec INR Ratio APTT (24.3-30.1) sec Sodium (136-145) meq/L Potassium (3.5-5.1) meq/L Chloride (98-107) meq/L Carbon Dioxide (21.0-32.0) meq/L Anion Gap (5-15) meq/L BUN (7-18) mg/dL Creatinine (0.60-1.30) mg/dL Estimated GFR (>89) mL/min Random Glucose (74-106) mg/dL Calcium (8.5-10.1) mg/dL Total Bilirubin (0.2-1.0) mg/dL AST (15-37) U/L ALT (12-78) U/L Alkaline Phosphatase (45-117) U/L Total Creatine Kinase (39-308) U/L Troponin I (0.02-0.05) ng/mL Total Protein (6.4-8.2) g/dL Albumin (3.4-5.0) g/dL Urine Color Yellow (Yellw/Straw) Urine Clarity Clear (Clear) Urine pH 5.0 (5.0-8.5) Ur Specific [place] 1.031 (1.002-1.035) Urine Protein Negative (Neg-Trace) mg/dL Urine Glucose (UA) Negative (Negative) mg/dL Urine Ketones Negative (Negative) mg/dL Urine Occult Blood Small H (Negative) Urine Nitrate Negative (Negative) Urine Bilirubin Negative (Negative) Urine Urobilinogen Less than 2 (Less than 2) mg/dL Ur Leukocyte Esterase Negative (Negative) Urine RBC Less than 1 (0-3) /hpf Urine WBC 1 (0-5) /hpf Ur Squamous Epith Cells 1 (0-5) /hpf Hyaline Casts 1 (0-3) /lpf Urine Mucus Few H (Occasional) /lpf Micro UA Comment Cath-culture not ind Ur Microscopic Review Not Reportable Urine Culture Comments Cath-cult not ind Imaging Data Radiologist's impression: Chest X-Ray 04/06/18 11:39 CONCLUSION: 1. No acute abnormality or significant interval change. Head CT 04/06/18 11:39 CONCLUSION: 1. Atrophy and white matter disease. . ECG Data EKG Prior to Arrival: Yes Attestation: I personally reviewed and interpreted this ECG as follows: Interpretation: ECG shows sinus rhythm at a rate of 85, no ST elevation or depression Discharge Plan Discharge Disposition Patient Disposition: 30 Still Patient Discharge Condition Condition: Stable Discharge Details Diagnosis: Altered mental status, Acute hypernatremia Physicians Team ED Provider: Romy Ornelas Primary Care Provider: [facility] Attending Provider: Bry Royal Interventions Interventions: Vital Signs Last Done: 04/06/18 11:36 Status ED Status: Admitted Patient
[2018-04-06] MEDS: Dextrose 5% in Water Inj 1,000 ML IV.CONT SCH ×2 (15:32→23:39)
--- NOTE | 2018-04-06 16:07 | P.HPIM ---
History of Present Illness Primary Care Physician: [facility] Chief Complaint: Confusion, weakness History of Present Illness: The patient is a 68-year-old male with a past medical history significant for multiple CVAs in the past who is presenting to the hospital with altered mental status and weakness. The patient was unable to give a history secondary to mental status but his was at the bedside and stated that the patient stopped eating about 2 or 3 days ago. She is unsure why that happened. Around that same time she noticed that he was too weak to get out of bed and walk around. She says he normally uses a walker and has a potty chair. She says he was recently in the hospital for treatment of a UTI. She states that the patient has chronic right-sided weakness from his CVAs. She says that the patient is generally confused from his CVAs and she believes he may have dementia. She states he has been breathing well. He has felt hot to the touch. She says yesterday he was complaining of some stomach and leg discomfort. Inpatient Certification: I certify that the inpatient services were ordered in accordance with Medicare regulations governing the order. This includes certification that hospital inpatient services are reasonable and necessary and in the case of services not specified as inpatient-only under 42 CFR 419.22(n), that they are appropriately provided as inpatient services in accordance to with the 2-midnight benchmark under 43 CFR 412.3(e) Estimated Total Length of Stay (Days): 2 Plans for Post Hospital Care: SNF Review of Systems All other systems reviewed negative except as stated in HPI PMFSH - History History Provided By: Patient - Medical History Medical History: Medical History (Last Reviewed 04/06/18 @ 16:03 by Bry Royal DO) Hyperlipemia Hypertension CVA (cerebral vascular accident) Dementia - Family History Family History: Family History (Last Updated 04/06/18 @ 16:03 by Bry Royal DO) Other Family history unknown - Social History I have reviewed the patient's Social History: Yes - Tobacco History Second Hand Smoke Exposure: No Tobacco Use In Past 30 Days: No Smoking Status: Former smoker Tobacco Type: Cigarettes - Alcohol History How Often Do You Have a Drink Containing Alcohol: Monthly or less - Substance Use History Substance History: No History of Abuse - Travel History Recent Travel in the [place] Within the Last 8 Weeks: No Recent Travel Out of the Country Within the Last 8 Weeks: No - Immunization History Tetanus Immunization: <5 Years Medications and Allergies Active Medications: Active Medications Acetaminophen (Tylenol) 650 mg PO Q4H PRN PRN Reason: fever; pain 1-2 Al Hydroxide/Mg Hydroxide (Milk Of Maame Alcaraz) 30 ml PO Q12H PRN PRN Reason: Mild Constipation Amlodipine Besylate (Norvasc) 10 mg PO DAILY [facility] Clopidogrel Bisulfate (Plavix) 75 mg PO DAILY [facility] Enoxaparin Sodium (Lovenox Inj) 30 mg SQ Q24H [facility] Dextrose (D5w Inj) 1,000 mls @ 125 mls/hr IV.CONT .Q8H [facility] Last Admin: 04/06/18 15:32 Dose: 125 mls/hr Lisinopril (Prinivil) 40 mg PO DAILY [facility] Sennosides (Senokot) 17.2 mg PO Q12H PRN PRN Reason: Moderate Constipation Sodium Chloride (Ns Flush) 2 ml IV.FLUSH PRN PRN PRN Reason: FLUSH AFTER USING IV ACCESS Allergies Allergy/AdvReac Type Severity Reaction Status Date / Time *MDRO Multi-Drug Resistant AdvReac Unknown Blister Uncoded 04/06/18 11:34 Organism Home Medications Medication Instructions Recorded Confirmed Type amlodipine 10 mg PO DAILY 04/06/18 04/06/18 History clopidogrel 75 mg PO DAILY 04/06/18 04/06/18 History lisinopril 40 mg PO DAILY 04/06/18 04/06/18 History spironolactone 25 mg PO DAILY 04/06/18 04/06/18 History Exam Vital signs: Vital Signs 04/06/18 11:36 04/06/18 12:03 04/06/18 15:32 Temperature 98.9 F Pulse Rate 79 85 Respiratory Rate 22 19 Blood Pressure 134/89 144/97 H Pulse Oximetry 95 95 98 Intake & Output 04/05/18 04/06/18 04/06/18 18:59 06:59 18:59 Weight 68.039 kg Narrative: GENERAL: No distress. SKIN: Focused skin assessment warm/dry, tenting of the skin. No wounds or signs of infection. HEAD: Atraumatic. Normocephalic. EYES: Pupils equal and round. No scleral icterus. Extraocular movements intact. ENT: Dry mucous membranes. NECK: Trachea midline. No JVD. CARDIOVASCULAR: Regular rate and rhythm. No murmur appreciated. RESPIRATORY: No accessory muscle use. Clear to auscultation. Breath sounds equal bilaterally. GASTROINTESTINAL: Abdomen soft, non-tender, nondistended. Hepatic and splenic margins not palpable. MUSCULOSKELETAL: No obvious deformities. No clubbing. No cyanosis. No edema. NEUROLOGICAL: Awake and alert, but confused. No obvious cranial nerve deficits. Moving upper and lower extremities. Results - Labs CBC & Chem 7: 04/06/18 11:49 04/06/18 11:49 Labs: Short CBC 04/06/18 Range/Units 11:49 WBC 8.4 (4.0-11.0) th/mm3 Hgb 15.3 (13.0-17.0) gm/dL Hct 47.0 (39.0-51.0) % Plt Count 100 L D (150-450) th/mm3 BMP 04/06/18 11:49 Sodium 163 H* Potassium 4.1 Chloride 133 H Carbon Dioxide 25.0 BUN 42 H Creatinine 1.28 Calcium 8.0 L Cardiac Enzymes 04/06/18 Range/Units 11:49 Total Creatine Kinase 222 (39-308) U/L Troponin I Less than 0.02 L (0.02-0.05) ng/mL Liver Function 04/06/18 Range/Units 11:49 Total Bilirubin 1.1 H (0.2-1.0) mg/dL AST 20 (15-37) U/L ALT 25 (12-78) U/L Alkaline Phosphatase 66 (45-117) U/L Albumin 2.9 L (3.4-5.0) g/dL Urine 04/06/18 Range/Units 12:00 Urine Color Yellow (Yellw/Straw) Urine Clarity Clear (Clear) Urine pH 5.0 (5.0-8.5) Ur Specific [place] 1.031 (1.002-1.035) Urine Protein Negative (Neg-Trace) mg/dL Urine Glucose (UA) Negative (Negative) mg/dL - Imaging Impressions Chest X-Ray 04/06/18 11:39 CONCLUSION: 1. No acute abnormality or significant interval change. Head CT 04/06/18 11:39 CONCLUSION: 1. Atrophy and white matter disease. . Caprini VTE Risk Assessment Caprini VTE Risk Assessment: Moderate/High Risk (score >= 2) Caprini Risk Assessment Model: Point Value = 1 Point Value = 2 Point Value = 3 Point Value = 5 Age 41-60 Minor surgery BMI > 25 kg/m2 Swollen legs Varicose veins or History of unexplained or recurrent spontaneous Oral contraceptives or hormone replacement Sepsis (< 1 month) Serious lung disease, including pneumonia (< 1 month) Abnormal pulmonary function Acute myocardial infarction Congestive heart failure (< 1 month) History of inflammatory bowel disease Medical patient at bed rest Age 61-74 Arthroscopic surgery Major open surgery (> 45 min) Laparoscopic surgery (> 45 min) Malignancy Confined to bed (> 72 hours) Immobilizing plaster cast Central venous access Age >= 75 History of VTE Family history of VTE Factor V Leiden Prothrombin [id number] Lupus anticoagulant Anticardiolipin antibodies Elevated serum homocysteine Heparin-induced thrombocytopenia Other congenital or acquired thrombophilia Stroke (< 1 month) Elective arthroplasty Hip, pelvis, or leg fracture Acute spinal cord injury (< 1 month) Prophylaxis Regimen: Total Risk Factor Score Risk Level Prophylaxis Regimen 0-1 Low Early ambulation 2 Moderate Order ONE of the following: *Sequential Compression Device (SCD) *Heparin 5000 units SQ BID 3-4 Higher Order ONE of the following medications: *Heparin 5000 units SQ TID *Enoxaparin/Lovenox 40 mg SQ daily (WT < 150 kg, CrCl > 30 mL/min) *Enoxaparin/Lovenox 30 mg SQ daily (WT < 150 kg, CrCl > 10-29 mL/min) *Enoxaparin/Lovenox 30 mg SQ BID (WT < 150 kg, CrCl > 30 mL/min) AND/OR *Sequential Compression Device (SCD) 5 or more Highest Order ONE of the following medications: *Heparin 5000 units SQ TID (Preferred with Epidurals) *Enoxaparin/Lovenox 40 mg SQ daily (WT < 150 kg, CrCl > 30 mL/min) *Enoxaparin/Lovenox 30 mg SQ daily (WT < 150 kg, CrCl > 10-29 mL/min) *Enoxaparin/Lovenox 30 mg SQ BID (WT < 150 kg, CrCl > 30 mL/min) AND *Sequential Compression Device (SCD) Assessment and Plan - Plan Hypernatremia Sodium level 163 on admission. The patient has not been eating or drinking. -D5W. -follow BMP. -ADAT. Swallow eval. Failure to thrive/ Weakness Secondary to dehydration. Concern for dementia. Has had five CVAs per . -IVFs. -PT/OT/ST. [facility] CM consult pending. -continue Plavix. -check A1c and lipid profile. HTN Chronic. -resume home meds except for Aldactone at this time. Thrombocytopenia Mild. No signs of bleeding. -monitor CBC while on Lovenox. PPx: Lovenox
[2018-04-06] MEDS: Enoxaparin Inj 30 MG/0.3 ML Syringe SQ SCH (17:01)
[2018-04-06 18:19] LABS: Chol/HDL Ratio 6.59 Ratio
[2018-04-06 22:20] LABS: Hemoglobin A1c 5.4 % (4.3-6.0)
[2018-04-07 06:15] LABS: Baso % (Auto) 0.5 % (0.0-2.0); Eos # (Auto) 0.1 th/mm3 (0.0-0.4); Eos % (Auto) 1.8 % (0.0-4.0); Hematocrit 43.8 % (39.0-51.0); Hemoglobin 14.3 gm/dL (13.0-17.0); Lymph # (Auto) 1.2 th/mm3 (1.0-4.8); Lymph % (Auto) 17.2 % (9.0-44.0); Mean Corpuscular HGB Conc 32.6 % (32.0-36.0); Mean Corpuscular Hemoglobin 29.9 pg (27.0-34.0); Mean Corpuscular Volume 91.7 fL (80.0-100.0); Mean Platelet Volume 11.6 fL (7.0-11.0); Mono # (Auto) 0.5 th/mm3 (0.0-0.9); Mono % (Auto) 6.6 % (0.0-8.0); Neut # (Auto) 5.2 th/mm3 (1.8-7.7); Neut % (Auto) 73.9 % (16.0-70.0); Platelet Count 95 th/mm3 (150-450); Red Blood Count 4.78 mil/mm3 (4.50-5.90); Red Cell Distribution Width 13.7 % (11.6-17.2)
[2018-04-07 06:39] LABS: Anion Gap 8 meq/L (5-15)
[2018-04-07 06:43] LABS: Alanine Aminotransferase 27 U/L (12-78); Albumin 2.9 g/dL (3.4-5.0); Alkaline Phosphatase 65 U/L (45-117); Aspartate Aminotransferase 25 U/L (15-37); Blood Urea Nitrogen 32 mg/dL (7-18); Calcium 8.5 mg/dL (8.5-10.1); Chloride 124 meq/L (98-107); Glomerular Filtration Rate 79 mL/min (>89); Glucose,Random 143 mg/dL (74-106); Potassium 3.8 meq/L (3.5-5.1); Total Protein 7.2 g/dL (6.4-8.2)
[2018-04-07 06:46] LABS: Sodium 158 meq/L (136-145)
[2018-04-07] MEDS: Dextrose 5% in Water Inj 1,000 ML IV.CONT SCH ×3 (08:02→20:30)
[2018-04-07 09:24] LABS: Ovalocytes 1+
[2018-04-07] MEDS: Lisinopril 20 MG Tablet PO SCH (09:57)
[2018-04-07] MEDS: amLODIPine 10 MG Tablet PO SCH (09:58)
--- NOTE | 2018-04-07 10:59 | P.PN ---
Subjective Interval history: Follow-up for hyponatremia. Patient is currently doing well. He does not talk much. However he follows commands appropriately. No fever or chills. Tolerating diet well. Physical Exam Vital signs: Vital Signs 04/06/18 11:36 04/06/18 12:03 04/06/18 15:32 Temperature 98.9 F Pulse Rate 79 85 Respiratory Rate 22 19 Blood Pressure 134/89 144/97 H Pulse Oximetry 95 95 98 04/06/18 20:00 04/07/18 00:00 04/07/18 08:00 Temperature 97.8 F 98.0 F 98.4 F Pulse Rate 82 88 67 Respiratory Rate 18 18 20 Blood Pressure 141/91 H 144/88 H 151/87 H Pulse Oximetry 97 98 99 04/07/18 08:48 Temperature Pulse Rate Respiratory Rate Blood Pressure Pulse Oximetry 96 Intake & Output 04/06/18 04/07/18 04/07/18 18:59 06:59 18:59 Intake Total 240 / 240 1000 / 1000 1000 / 1000 Output Total 0 / 0 Balance 240 / 240 1000 / 1000 1000 / 1000 Weight 68.039 kg 69.1 kg Intake: IV 1000 / 1000 1000 / 1000 D5W Inj 1,000 ML @ 125 mls/hr 1000 / 1000 1000 / 1000 IV.CONT .Q8H [facility] Rx#:[id number] Oral 240 / 240 Output: Urine 0 / 0 Other: # Voids 1 Narrative: GENERAL: Alert, NAD. Follows commands. SKIN: Focused skin assessment warm/dry, tenting of the skin. No wounds or signs of infection. HEAD: Atraumatic. Normocephalic. EYES: Pupils equal and round. No scleral icterus. Extraocular movements intact. ENT: Dry mucous membranes. NECK: Trachea midline. No JVD. CARDIOVASCULAR: Regular rate and rhythm. No murmur appreciated. RESPIRATORY: No accessory muscle use. Clear to auscultation. Breath sounds equal bilaterally. GASTROINTESTINAL: Abdomen soft, non-tender, nondistended. Hepatic and splenic margins not palpable. MUSCULOSKELETAL: No obvious deformities. No clubbing. No cyanosis. No edema. NEUROLOGICAL: Awake and alert, but confused. No obvious cranial nerve deficits. Moving upper and lower extremities. Results - Labs CBC & Chem 7: 04/07/18 05:32 04/07/18 05:32 Laboratory Results - last 24 hr 04/06/18 04/06/18 04/06/18 11:49 11:49 11:49 WBC 8.4 RBC 5.06 Hgb 15.3 Hct 47.0 MCV 92.8 MCH 30.2 MCHC 32.6 RDW 14.5 Plt Count 100 L D MPV 11.8 H Prelim Diff (Auto) Neut % (Auto) 76.4 H Lymph % (Auto) 16.1 [place] % (Auto) 5.6 Eos % (Auto) 1.4 Baso % (Auto) 0.5 Neut # (Auto) 6.4 Lymph # (Auto) 1.4 [place] # (Auto) 0.5 Eos # (Auto) 0.1 Baso # (Auto) 0.0 WBC Differential . Diff Scan Differential Comment Auto diff final Platelet Estimate Platelet Morphology Ovalocytes PT 12.0 H INR 1.2 APTT 27.1 Sodium 163 H* Potassium 4.1 Chloride 133 H Carbon Dioxide 25.0 Anion Gap 5 BUN 42 H Creatinine 1.28 Estimated GFR 68 L Random Glucose 103 Hemoglobin A1c Calcium 8.0 L Total Bilirubin 1.1 H AST 20 ALT 25 Alkaline Phosphatase 66 Total Creatine Kinase 222 Troponin I Less than 0.02 L Total Protein 7.2 Albumin 2.9 L Triglycerides Cholesterol LDL Cholesterol, Calc HDL Cholesterol Cholesterol/HDL Ratio Urine Color Urine Clarity Urine pH Ur Specific [place] Urine Protein Urine Glucose (UA) Urine Ketones Urine Occult Blood Urine Nitrate Urine Bilirubin Urine Urobilinogen Ur Leukocyte Esterase Urine RBC Urine WBC Ur Squamous Epith Cells Hyaline Casts Urine Mucus Micro UA Comment Ur Microscopic Review Urine Culture Comments 04/06/18 04/06/18 04/06/18 11:49 11:49 12:00 WBC RBC Hgb Hct MCV MCH MCHC RDW Plt Count MPV Prelim Diff (Auto) Neut % (Auto) Lymph % (Auto) [place] % (Auto) Eos % (Auto) Baso % (Auto) Neut # (Auto) Lymph # (Auto) [place] # (Auto) Eos # (Auto) Baso # (Auto) WBC Differential Diff Scan Differential Comment Platelet Estimate Platelet Morphology Ovalocytes PT INR APTT Sodium Potassium Chloride Carbon Dioxide Anion Gap BUN Creatinine Estimated GFR Random Glucose Hemoglobin A1c 5.4 Calcium Total Bilirubin AST ALT Alkaline Phosphatase Total Creatine Kinase Troponin I Total Protein Albumin Triglycerides 243 H Cholesterol 178 LDL Cholesterol, Calc 102 H HDL Cholesterol 27.0 L Cholesterol/HDL Ratio 6.59 Urine Color Yellow Urine Clarity Clear Urine pH 5.0 Ur Specific [place] 1.031 Urine Protein Negative Urine Glucose (UA) Negative Urine Ketones Negative Urine Occult Blood Small H Urine Nitrate Negative Urine Bilirubin Negative Urine Urobilinogen Less than 2 Ur Leukocyte Esterase Negative Urine RBC Less than 1 Urine WBC 1 Ur Squamous Epith Cells 1 Hyaline Casts 1 Urine Mucus Few H Micro UA Comment Cath-culture not ind Ur Microscopic Review Not Reportable Urine Culture Comments Cath-cult not ind 04/07/18 04/07/18 05:32 05:32 WBC 7.0 RBC 4.78 Hgb 14.3 Hct 43.8 MCV 91.7 MCH 29.9 MCHC 32.6 RDW 13.7 Plt Count 95 L MPV 11.6 H Prelim Diff (Auto) Slide review pending Neut % (Auto) 73.9 H Lymph % (Auto) 17.2 [place] % (Auto) 6.6 Eos % (Auto) 1.8 Baso % (Auto) 0.5 Neut # (Auto) 5.2 Lymph # (Auto) 1.2 [place] # (Auto) 0.5 Eos # (Auto) 0.1 Baso # (Auto) 0.0 WBC Differential . Diff Scan Auto diff confirmed Differential Comment . Platelet Estimate Low L Platelet Morphology Enlarged H Ovalocytes 1+ H PT INR APTT Sodium 158 H* Potassium 3.8 Chloride 124 H D Carbon Dioxide 26.0 Anion Gap 8 BUN 32 H Creatinine 1.12 Estimated GFR 79 L Random Glucose 143 H Hemoglobin A1c Calcium 8.5 Total Bilirubin 1.6 H AST 25 ALT 27 Alkaline Phosphatase 65 Total Creatine Kinase Troponin I Total Protein 7.2 Albumin 2.9 L Triglycerides Cholesterol LDL Cholesterol, Calc HDL Cholesterol Cholesterol/HDL Ratio Urine Color Urine Clarity Urine pH Ur Specific [place] Urine Protein Urine Glucose (UA) Urine Ketones Urine Occult Blood Urine Nitrate Urine Bilirubin Urine Urobilinogen Ur Leukocyte Esterase Urine RBC Urine WBC Ur Squamous Epith Cells Hyaline Casts Urine Mucus Micro UA Comment Ur Microscopic Review Urine Culture Comments - Imaging Impressions Chest X-Ray 04/06/18 11:39 CONCLUSION: 1. No acute abnormality or significant interval change. Head CT 04/06/18 11:39 CONCLUSION: 1. Atrophy and white matter disease. . - Procedures None. Assessment and Plan - Plan The patient is a 68-year-old male with a past medical history significant for multiple CVAs in the past who is presenting to the hospital with altered mental status and weakness. Patient apparently stopped eating 2-3 days prior to this admission. Hypernatremia -Sodium 163 on admission. Estimated total free water deficit is over 6 L. -Continue D5W at 125 cc/h. Sodium today 158. Will check sodium again at 1400 today. -Continue regular diet. Hypertension -Continue amlodipine 10 mg daily, lisinopril 40 mg daily. History of CVA -Continue Plavix 75 mg daily. Mild [place]EL[place] - Creatinine 1.28 --> 1.12. Full code, Lovenox.
--- NOTE | 2018-04-07 11:37 | XR ---
EXAM DATE: 04/07/2018 12:00 AM EDT AGE/SEX: 68 years / Male INDICATIONS: Right lower leg pain after fall. CLINICAL DATA: This is the patient's initial encounter. Patient reports that signs and symptoms have been present for 1 day and indicates a pain score of Nonresponsive. MEDICAL/SURGICAL HISTORY: None. None. COMPARISON: No prior exams available for comparison. FINDINGS: Bony structures are intact and in normal alignment. Osseous density is normal. Soft tissues are unre markable. No radiopaque foreign bodies seen. CONCLUSION: 1. No acute fracture. Electronically signed by: Arslan Lopez MD 04/07/2018 11:35 AM EDT
[2018-04-07] MEDS: Enoxaparin Inj 30 MG/0.3 ML Syringe SQ SCH (15:57)
--- NOTE | 2018-04-07 16:11 | ECG ---
Date Performed: 04/06/2018 Time Performed: 12:24:14 PTAGE: 68 years EKG: Sinus rhythm WITH SHORT IL INTERVAL NONSPECIFIC ST & T-WAVE ABNORMALITY Since previous tracing, no significant ch jaime noted BORDERLINE ECG PREVIOUS TRACING : 03/23/2018 18.36 DOCTOR: Eduardo Knapp Interpretating Date/Time 04/07/2018 16:10:29
[2018-04-08] MEDS: Dextrose 5% in Water Inj 1,000 ML IV.CONT SCH ×3 (04:42→17:13)
[2018-04-08 07:42] LABS: Calcium 7.8 mg/dL (8.5-10.1); Carbon Dioxide 28.2 meq/L (21.0-32.0); Potassium 3.2 meq/L (3.5-5.1)
[2018-04-08] MEDS: amLODIPine 10 MG Tablet PO SCH (08:42)
[2018-04-08] MEDS: Lisinopril 20 MG Tablet PO SCH (08:42)
[2018-04-08] MEDS: Enoxaparin Inj 30 MG/0.3 ML Syringe SQ SCH (17:13)
--- NOTE | 2018-04-08 17:52 | P.PN ---
Subjective Interval history: Follow-up for hypernatremia. Patient is currently doing well. Tolerating diet well. Does not talk much. Denies any acute concerns. However later in the day , per nursing staff, patient started having significant nausea and vomiting. Remains afebrile. Physical Exam Vital signs: Vital Signs 04/07/18 20:00 04/08/18 00:00 04/08/18 07:32 Temperature 98.0 F 97.3 F L Pulse Rate 90 83 Respiratory Rate 17 17 Blood Pressure 132/73 159/76 H Pulse Oximetry 98 98 97 04/08/18 08:00 04/08/18 12:00 Temperature 97.7 F 97.6 F Pulse Rate 77 104 H Respiratory Rate 18 19 Blood Pressure 195/107 H 139/97 H Pulse Oximetry 95 95 Intake & Output 04/07/18 04/08/18 04/08/18 18:59 06:59 18:59 Intake Total 1300 / 1300 2600 / 2600 1000 / 1000 Balance 1300 / 1300 2600 / 2600 1000 / 1000 Weight 69.1 kg Intake: IV 1300 / 1300 2000 / 2000 1000 / 1000 D5W Inj 1,000 ML @ 125 mls/hr 1300 / 1300 2000 / 2000 1000 / 1000 IV.CONT .Q8H [facility] Rx#:[id number] Oral 600 / 600 Other: # Voids 2 2 Date of Last Bowel Movement 04/07/18 Results - Labs CBC & Chem 7: 04/07/18 05:32 04/08/18 05:30 Laboratory Results - last 24 hr 04/08/18 04/08/18 05:30 11:21 Sodium 149 H Potassium 3.2 L Chloride 115 H D Carbon Dioxide 28.2 Anion Gap 6 BUN 23 H Creatinine 1.01 Estimated GFR 89 POC Glucose 160 H Random Glucose 118 H Calcium 7.8 L - Imaging Chest X-Ray 04/06/18 11:39 CONCLUSION: 1. No acute abnormality or significant interval change. Head CT 04/06/18 11:39 CONCLUSION: 1. Atrophy and white matter disease. . Tibia/Fibula X-Ray 04/07/18 00:00 CONCLUSION: 1. No acute fracture. - Procedures None. Assessment and Plan - Plan The patient is a 68-year-old male with a past medical history significant for multiple CVAs in the past who is presenting to the hospital with altered mental status and weakness. Patient apparently stopped eating 2-3 days prior to this admission. Hypernatremia -Sodium 163 on admission. Estimated total free water deficit is over 6 L. -Continue D5W at 125 cc/h. Sodium today 149. BMP in the AM. Hypertension -Continue amlodipine 10 mg daily, lisinopril 40 mg daily. History of CVA -Continue Plavix 75 mg daily. Mild FELTON - Creatinine 1.28 --> 1.01 Gastritis - Etiology unknown. Will keep patient NPO for now. - Continue IV fluid - Will obtain KUB if symptoms not resolved. Full code, Lovenox.
[2018-04-09] MEDS: Dextrose 5% in Water Inj 1,000 ML IV.CONT SCH ×3 (01:04→18:58)
--- NOTE | 2018-04-09 02:41 | XR ---
EXAM DATE: 04/09/2018 1:41 AM EDT AGE/SEX: 68 years / Male INDICATIONS: Nausea and vomiting. CLINICAL DATA: This is the patient's initial encounter. Patient reports that signs and symptoms have been present for 1 day and indicates a pain score of 0/10. MEDICAL/SURGICAL HISTORY: None. None. COMPARISON: No prior exams available for comparison. FINDINGS: The abdominal bowel gas pattern is normal. No abnormal masses, calcifications, or organomegaly is s een. The osseous structures are unremarkable. CONCLUSION: No evidence of obstruction. Electronically signed by: Efrem Reynolds MD 04/09/2018 2:40 AM EDT
[2018-04-09 08:20] LABS: Anion Gap 11 meq/L (5-15); Blood Urea Nitrogen 20 mg/dL (7-18); Calcium 7.8 mg/dL (8.5-10.1); Carbon Dioxide 22.7 meq/L (21.0-32.0); Chloride 108 meq/L (98-107); Glomerular Filtration Rate Greater Than 89 mL/min (>89); Glucose,Random 145 mg/dL (74-106); Sodium 142 meq/L (136-145)
[2018-04-09 08:38] LABS: Potassium 2.8 meq/L (3.5-5.1)
[2018-04-09] MEDS: Lisinopril 20 MG Tablet PO SCH (09:13)
[2018-04-09] MEDS: amLODIPine 10 MG Tablet PO SCH (09:13)
[2018-04-09] MEDS ORDERED: Potassium Chlor 10 mEq Premix 10 MEQ/100 ML PIGGYBACK IV.SIG SCH (09:20)
--- NOTE | 2018-04-09 11:46 | P.PN ---
Subjective Interval history: Follow up for hypernatremia. Patient is resting in bed. Does not talk much. When asked, he denies any concerns. Afebrile. Physical Exam Vital signs: Vital Signs 04/08/18 12:00 04/08/18 16:00 04/08/18 20:00 Temperature 97.6 F 97.6 F 97.6 F Pulse Rate 104 H 95 H 97 H Respiratory Rate 19 18 17 Blood Pressure 139/97 H 147/85 H 171/91 H Pulse Oximetry 95 94 L 96 04/08/18 23:47 04/09/18 08:00 Temperature 97.2 F L 98.4 F Pulse Rate 90 80 Respiratory Rate 18 17 Blood Pressure 124/66 151/96 H Pulse Oximetry 97 95 Intake & Output 04/08/18 04/09/18 04/09/18 18:59 06:59 18:59 Intake Total 1000 / 1000 1000 / 1000 Balance 1000 / 1000 1000 / 1000 Weight 69.2 kg Intake: IV 1000 / 1000 1000 / 1000 D5W Inj 1,000 ML @ 125 mls/hr 1000 / 1000 1000 / 1000 IV.CONT .Q8H [facility] Rx#:[id number] Other: # Voids 6 Date of Last Bowel Movement 04/08/18 04/08/18 Results - Labs CBC & Chem 7: 04/07/18 05:32 04/09/18 14:41 Laboratory Results - last 24 hr 04/08/18 04/09/18 04/09/18 17:19 05:13 05:14 Sodium 142 Potassium 2.8 L* Chloride 108 H Carbon Dioxide 22.7 Anion Gap 11 BUN 20 H Creatinine 0.69 Estimated GFR Greater than 89 POC Glucose 120 H 151 H Random Glucose 145 H Calcium 7.8 L Stl C.difficile DNA Amp St C. diff Tox Epid 027 04/09/18 06:34 Sodium Potassium Chloride Carbon Dioxide Anion Gap BUN Creatinine Estimated GFR POC Glucose Random Glucose Calcium Stl C.difficile DNA Amp Negative St C. diff Tox Epid 027 Negative - Imaging Impressions Abdomen X-Ray 04/09/18 01:41 CONCLUSION: No evidence of obstruction. - Procedures None. Assessment and Plan - Plan The patient is a 68-year-old male with a past medical history significant for multiple CVAs in the past who is presenting to the hospital with altered mental status and weakness. Patient apparently stopped eating 2-3 days prior to this admission. Hypernatremia Hypokalemia -Sodium 163 on admission. -Sodium today 149 --> 142. -D/C D5W. -K+ replaced. Repeat K+ 2.8--> 3.3. Hypertension -Continue amlodipine 10 mg daily, lisinopril 40 mg daily. History of CVA -Continue Plavix 75 mg daily. Mild FELTON - Creatinine 1.28 --> 1.01 --> 0.69. Resolved. Gastritis - Etiology unknown. - Patient is currently on cardiac diet. Full code, Lovenox.
[2018-04-09] MEDS: Potassium Chlor 10 mEq Premix 10 MEQ/100 ML PIGGYBACK IV.SIG SCH ×3 (12:52→18:57)
[2018-04-09] MEDS: Enoxaparin Inj 30 MG/0.3 ML Syringe SQ SCH (16:44)
[2018-04-10 00:50] VITALS: O2SAT 96
[2018-04-10 09:14] VITALS: RESP 19
[2018-04-10] MEDS: Lisinopril 20 MG Tablet PO SCH (10:25)
[2018-04-10] MEDS: amLODIPine 10 MG Tablet PO SCH (10:25)
[2018-04-10 13:14] VITALS: BP 165/92; PULSE 74; TEMP 98
[2018-04-10] MEDS ORDERED: hydrALAZINE 10 MG Tablet PO ONE (15:15)
[2018-04-10] MEDS: Enoxaparin Inj 30 MG/0.3 ML Syringe SQ SCH (19:12)
--- NOTE | 2018-04-13 21:32 | P.DS ---
Date of admission: 04/06/18 14:51 Primary care physician: Physician 's [facility] Brief History from admission: The patient is a 68-year-old male with a past medical history significant for multiple CVAs in the past who is presenting to the hospital with altered mental status and weakness. The patient was unable to give a history secondary to mental status but his was at the bedside and stated that the patient stopped eating about 2 or 3 days ago. She is unsure why that happened. Around that same time she noticed that he was too weak to get out of bed and walk around. She says he normally uses a walker and has a potty chair. She says he was recently in the hospital for treatment of a UTI. She states that the patient has chronic right-sided weakness from his CVAs. She says that the patient is generally confused from his CVAs and she believes he may have dementia. She states he has been breathing well. He has felt hot to the touch. She says yesterday he was complaining of some stomach and leg discomfort. DS: Summary Hospital Course: The patient is a 68-year-old male with a past medical history significant for multiple CVAs in the past who is presenting to the hospital with altered mental status and weakness. Patient apparently stopped eating 2-3 days prior to this admission. Hypernatremia Hypokalemia -Sodium 163 on admission. -Sodium today 149 --> 142. -D/C D5W. -K+ replaced. Repeat K+ 2.8--> 3.3. Hypertension -Continue amlodipine 10 mg daily, lisinopril 40 mg daily. History of CVA -Continue Plavix 75 mg daily. Mild FELTON - Creatinine 1.28 --> 1.01 --> 0.69. Resolved. Gastritis - Etiology unknown. - Patient is currently on cardiac diet. Full code, Lovenox. - Time Spent with Patient Total time spent providing and/or coordinating discharge services: Less than 30 minutes - Quality: VTE Deep Vein Thrombosis/Pulmonary Embolism Present on Admission: No Exam Narrative: GENERAL: Alert, NAD. Follows commands. SKIN: Focused skin assessment warm/dry, tenting of the skin. No wounds or signs of infection. HEAD: Atraumatic. Normocephalic. EYES: Pupils equal and round. No scleral icterus. Extraocular movements intact. ENT: Dry mucous membranes. NECK: Trachea midline. No JVD. CARDIOVASCULAR: Regular rate and rhythm. No murmur appreciated. RESPIRATORY: No accessory muscle use. Clear to auscultation. Breath sounds equal bilaterally. GASTROINTESTINAL: Abdomen soft, non-tender, nondistended. Hepatic and splenic margins not palpable. MUSCULOSKELETAL: No obvious deformities. No clubbing. No cyanosis. No edema. NEUROLOGICAL: Awake and alert, but confused. No obvious cranial nerve deficits. Moving upper and lower extremities. Results Procedures completed during hospitalization: None. - Impressions ITS Impressions Chest X-Ray 04/06/18 11:39 CONCLUSION: 1. No acute abnormality or significant interval change. Head CT 04/06/18 11:39 CONCLUSION: 1. Atrophy and white matter disease. . Tibia/Fibula X-Ray 04/07/18 00:00 CONCLUSION: 1. No acute fracture. Abdomen X-Ray 04/09/18 01:41 CONCLUSION: No evidence of obstruction. Discharge Plan - Discharge Disposition Patient Disposition: Discharge to SNF - Discharge Condition Condition: Stable - Discharge Order Discharge Orders: Discharge Order (Routine); Ordered 04/10/18 Ordered By: Ba Marlow - Discharge Details Anticipated Discharge Date: 04/10/18 - Physicians Team Primary Care Provider: [facility] [place] Attending Provider: Ba Marlow Other Providers: [facility],Agency
== END 2018-04-10 15:16 ==
LOC: NEPE 11:11 → NEDA 14:51 → N07 16:05
PROVIDERS: ADMIT Hospitalist; ATTEND Hospitalist

== ENCOUNTER 2018-06-16 02:59 | Observation (INO) ==
[2018-06-16 04:11] LABS: Bilirubin,Urine Negative (Negative); Clarity,Urine Clear (Clear); Color,Urine Yellow (Yellw/Straw); Glucose,Urine (UA) Negative (Negative); Leukocyte Esterase,Urine Negative (Negative); Nitrite,Urine Negative (Negative); Specific Gravity,Urine 1.019 (1.002-1.035); Squamous Epithelial Cell,Urine <1 /hpf (0-5)
[2018-06-16 04:14] LABS: Amphetamine Screen,Urine Neg (Neg); Barbiturate Screen,Urine Neg (Neg); Cannabinoid Screen,Urine Neg (Neg); Cocaine Screen,Urine Neg (Neg)
[2018-06-16 04:15] LABS: Opiate Screen,Urine Neg (Neg)
[2018-06-16 04:27] LABS: Baso # (Auto) 0.1 th/mm3 (0.0-0.2); Baso % (Auto) 1.2 % (0.0-2.0); Eos # (Auto) 0.1 th/mm3 (0.0-0.4); Eos % (Auto) 1.4 % (0.0-4.0); Hemoglobin 11.5 gm/dL (13.0-17.0); Lymph # (Auto) 1.3 th/mm3 (1.0-4.8); Lymph % (Auto) 26.3 % (9.0-44.0); Mean Corpuscular Hemoglobin 29.9 pg (27.0-34.0); Mean Platelet Volume 8.8 fL (7.0-11.0); Mono # (Auto) 0.5 th/mm3 (0.0-0.9); Mono % (Auto) 9.8 % (0.0-8.0); Neut % (Auto) 61.3 % (16.0-70.0); Platelet Count 279 th/mm3 (150-450); Red Blood Count 3.86 mil/mm3 (4.50-5.90); Red Cell Distribution Width 14.3 % (11.6-17.2); White Blood Count 4.9 th/mm3 (4.0-11.0)
--- NOTE | 2018-06-16 04:29 | ED ---
HPI General Chief Complaint: Psychiatric Symptoms Stated Complaint: Psy/VCSO Time Seen by Provider: 06/16/18 03:25 Source: EMS and police Mode of arrival: EMS Limitations: no limitations History of Present Illness HPI Narrative: 68-year-old male was brought to the emergency room as a Arechiga act by EMS because he threatened to cut his wrist with razor blade and became combative with his . called 911. Patient has history of dementia. It is difficult to understand what the patient is saying but the BA paper work by the police at the documentation. Vital signs are stable. Related Data Home Medications Medication Instructions Recorded Confirmed amlodipine 10 mg PO DAILY 04/06/18 06/16/18 clopidogrel 75 mg PO DAILY 04/06/18 06/16/18 lisinopril 40 mg PO DAILY 04/06/18 06/16/18 spironolactone 25 mg PO DAILY 04/06/18 06/16/18 Previous Rx's Medication Instructions Recorded quetiapine 25 mg PO BID #60 tab 06/22/18 Allergies Allergy/AdvReac Type Severity Reaction Status Date / Time No Known Allergies Allergy Verified 06/08/18 16:08 Review of Systems ROS: all other systems reviewed are negative [facility] Medical History Medical History CVA (cerebral vascular accident) (Acute) Dementia (Acute) Hyperlipemia (Acute) Hypertension (Acute) Family History Family History Other Family history unknown Social History Social History Substance History: No History of Abuse Second Hand Smoke Exposure: No Smoking Status: Current every day smoker Tobacco Type: Cigarettes How Often Do You Have a Drink Containing Alcohol: Never Recent Travel in [place] within the Last 8 Weeks: No Recent Out of Country Travel within the Last 8 Weeks: No Immunization History Tetanus Immunization: Unsure Exam Narrative Exam Narrative: GENERAL: Awake, looks much older than his age, cooperative SKIN: Focused skin assessment warm/dry. HEAD: Atraumatic. Normocephalic. EYES: Pupils equal and round. No scleral icterus. No injection or drainage. ENT: No nasal bleeding or discharge. Mucous membranes pink and moist. NECK: Trachea midline. No JVD. CARDIOVASCULAR: Regular rate and rhythm. No murmur appreciated. RESPIRATORY: No accessory muscle use. Clear to auscultation. Breath sounds equal bilaterally. GASTROINTESTINAL: Abdomen soft, non-tender, nondistended. Hepatic and splenic margins not palpable. MUSCULOSKELETAL: No obvious deformities. No clubbing. No cyanosis. No edema. NEUROLOGICAL: Awake and alert. No obvious cranial nerve deficits. Motor grossly within normal limits. Normal speech. PSYCHIATRIC: Appropriate mood and affect; insight and judgment normal. Course Initial Documented Vital Signs Temperature 98.3 F 06/16/18 03:13 Pulse Rate 68 06/16/18 03:13 Respiratory Rate 15 06/16/18 03:13 Blood Pressure 134/81 06/16/18 03:13 Pulse Oximetry 99 06/16/18 03:13 Last Documented Vital Signs Temperature 98.4 F 06/22/18 07:45 Pulse Rate 68 06/22/18 07:45 Respiratory Rate 20 06/22/18 07:45 Blood Pressure 126/71 06/22/18 07:45 Pulse Oximetry 97 06/22/18 07:45 Medical Decision Making MDM Narrative Medical decision making narrative: Blood test results are back and within acceptable limit. Awaiting for psych screen in the morning. Patient is medically cleared. Medical Screen Exam Complete: Yes Emergency Medical Condition: Yes Lab Data Result diagrams: 06/16/18 04:18 06/20/18 12:13 Lab Results 06/16/18 06/16/18 06/16/18 Range/Units 03:46 03:46 03:46 WBC (4.0-11.0) th/mm3 RBC (4.50-5.90) mil/mm3 Hgb (13.0-17.0) gm/dL Hct (39.0-51.0) % MCV (80.0-100.0) fL MCH (27.0-34.0) pg MCHC (32.0-36.0) % RDW (11.6-17.2) % Plt Count (150-450) th/mm3 MPV (7.0-11.0) fL Neut % (Auto) (16.0-70.0) % Lymph % (Auto) (9.0-44.0) % Swisher % (Auto) (0.0-8.0) % Eos % (Auto) (0.0-4.0) % Baso % (Auto) (0.0-2.0) % Neut # (Auto) (1.8-7.7) th/mm3 Lymph # (Auto) (1.0-4.8) th/mm3 Swisher # (Auto) (0.0-0.9) th/mm3 Eos # (Auto) (0.0-0.4) th/mm3 Baso # (Auto) (0.0-0.2) th/mm3 WBC Differential Differential Comment Sodium 140 (136-145) meq/L Potassium 4.1 (3.5-5.1) meq/L Chloride 108 H (98-107) meq/L Carbon Dioxide 25.6 (21.0-32.0) meq/L Anion Gap 6 (5-15) meq/L BUN 11 (7-18) mg/dL Creatinine 0.95 (0.60-1.30) mg/dL Estimated GFR Greater than 89 (>89) mL/min Random Glucose 94 (74-106) mg/dL Calcium 8.4 L (8.5-10.1) mg/dL Magnesium 2.0 (1.5-2.5) mg/dL Total Bilirubin 0.8 (0.2-1.0) mg/dL AST 29 (15-37) U/L ALT 13 (12-78) U/L Alkaline Phosphatase 78 (45-117) U/L Total Protein 7.2 (6.4-8.2) g/dL Albumin 3.1 L (3.4-5.0) g/dL TSH 2.000 (0.358-3.740) uIU/mL Urine Color Yellow (Yellw/Straw) Urine Clarity Clear (Clear) Urine pH 5.0 (5.0-8.5) Ur Specific [place] 1.019 (1.002-1.035) Urine Protein Negative (Neg-Trace) mg/dL Urine Glucose (UA) Negative (Negative) mg/dL Urine Ketones Negative (Negative) mg/dL Urine Occult Blood Negative (Negative) Urine Nitrate Negative (Negative) Urine Bilirubin Negative (Negative) Urine Urobilinogen Less than 2 (Less than 2) mg/dL Ur Leukocyte Esterase Negative (Negative) Urine RBC 1 (0-3) /hpf Urine WBC 2 (0-5) /hpf Ur Squamous Epith Cells <1 (0-5) /hpf Micro UA Comment Culture not ind Ur Microscopic Review Not Reportable Urine Culture Comments Culture not ind Urine Opiates Screen Neg (Neg) Ur Barbiturates Screen Neg (Neg) Ur Amphetamines Screen Neg (Neg) U Benzodiazepines Scrn Neg (Neg) Urine Cocaine Screen Neg (Neg) U Cannabinoids Screen Neg (Neg) Serum Alcohol Less than 3 (0-5) mg/dL 06/16/18 06/20/18 Range/Units 04:18 12:13 WBC 4.9 (4.0-11.0) th/mm3 RBC 3.86 L (4.50-5.90) mil/mm3 Hgb 11.5 L (13.0-17.0) gm/dL Hct 34.0 L (39.0-51.0) % MCV 88.0 (80.0-100.0) fL MCH 29.9 (27.0-34.0) pg MCHC 34.0 (32.0-36.0) % RDW 14.3 (11.6-17.2) % Plt Count 279 (150-450) th/mm3 MPV 8.8 (7.0-11.0) fL Neut % (Auto) 61.3 (16.0-70.0) % Lymph % (Auto) 26.3 (9.0-44.0) % Swisher % (Auto) 9.8 H (0.0-8.0) % Eos % (Auto) 1.4 (0.0-4.0) % Baso % (Auto) 1.2 (0.0-2.0) % Neut # (Auto) 3.0 (1.8-7.7) th/mm3 Lymph # (Auto) 1.3 (1.0-4.8) th/mm3 Swisher # (Auto) 0.5 (0.0-0.9) th/mm3 Eos # (Auto) 0.1 (0.0-0.4) th/mm3 Baso # (Auto) 0.1 (0.0-0.2) th/mm3 WBC Differential . Differential Comment Auto diff final Sodium 144 (136-145) meq/L Potassium 3.7 (3.5-5.1) meq/L Chloride 108 H (98-107) meq/L Carbon Dioxide 28.4 (21.0-32.0) meq/L Anion Gap 8 (5-15) meq/L BUN 13 (7-18) mg/dL Creatinine 0.93 (0.60-1.30) mg/dL Estimated GFR Greater than 89 (>89) mL/min Random Glucose 106 (74-106) mg/dL Calcium 8.2 L (8.5-10.1) mg/dL Magnesium (1.5-2.5) mg/dL Total Bilirubin (0.2-1.0) mg/dL AST (15-37) U/L ALT (12-78) U/L Alkaline Phosphatase (45-117) U/L Total Protein (6.4-8.2) g/dL Albumin (3.4-5.0) g/dL TSH (0.358-3.740) uIU/mL Urine Color (Yellw/Straw) Urine Clarity (Clear) Urine pH (5.0-8.5) Ur Specific [place] (1.002-1.035) Urine Protein (Neg-Trace) mg/dL Urine Glucose (UA) (Negative) mg/dL Urine Ketones (Negative) mg/dL Urine Occult Blood (Negative) Urine Nitrate (Negative) Urine Bilirubin (Negative) Urine Urobilinogen (Less than 2) mg/dL Ur Leukocyte Esterase (Negative) Urine RBC (0-3) /hpf Urine WBC (0-5) /hpf Ur Squamous Epith Cells (0-5) /hpf Micro UA Comment Ur Microscopic Review Urine Culture Comments Urine Opiates Screen (Neg) Ur Barbiturates Screen (Neg) Ur Amphetamines Screen (Neg) U Benzodiazepines Scrn (Neg) Urine Cocaine Screen (Neg) U Cannabinoids Screen (Neg) Serum Alcohol (0-5) mg/dL Imaging Data Radiologist's impression: Elbow X-Ray 06/17/18 00:00 CONCLUSION: Limited but unremarkable study. Hip X-Ray 06/17/18 00:00 CONCLUSION: 1. 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 2. [place] shaped ossification just lateral to the superior portion of the acetabulum which is unchanged from the prior study. This could either relate to a small avulsion fracture or could relate to calcification in the overlying soft tissues. Discharge Plan Discharge Disposition Patient Disposition: ED Admit(ED Internal Use Only) Discharge Condition Condition: Stable Discharge Order Discharge Orders: Discharge Order (Routine); Ordered 06/22/18 Ordered By: Katherine Henriquez ED Use Only Admit Order (Routine); Ordered 06/17/18 Ordered By: Shona Mcmanus Discharge Details Diagnosis: Dementia Physicians Team ED Provider: Heather Mckinley Primary Care Provider: [facility],Physician 's Attending Provider: Katherine Henriquez Other Providers: [facility],Agency Status ED Status: Discharged Discharge Information Discharge Date/Time: 06/17/18 05:28
[2018-06-16 04:43] LABS: Alanine Aminotransferase 13 U/L (12-78); Albumin 3.1 g/dL (3.4-5.0); Anion Gap 6 meq/L (5-15); Aspartate Aminotransferase 29 U/L (15-37); Blood Urea Nitrogen 11 mg/dL (7-18); Calcium 8.4 mg/dL (8.5-10.1); Carbon Dioxide 25.6 meq/L (21.0-32.0); Chloride 108 meq/L (98-107); Glomerular Filtration Rate Greater Than 89 mL/min (>89); Glucose,Random 94 mg/dL (74-106); Sodium 140 meq/L (136-145)
[2018-06-16 04:51] LABS: Alkaline Phosphatase 78 U/L (45-117); Total Protein 7.2 g/dL (6.4-8.2)
[2018-06-16 04:55] LABS: Potassium 4.1 meq/L (3.5-5.1)
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
[2018-06-17] MEDS: Spironolactone 25 MG Tablet PO SCH (10:00)
[2018-06-17] MEDS: amLODIPine 10 MG Tablet PO SCH (10:00)
[2018-06-17] MEDS: Lisinopril 20 MG Tablet PO SCH (10:00)
[2018-06-17] MEDS: QUEtiapine 25 MG Tablet PO SCH ×2 (10:29→20:06)
[2018-06-17] MEDS ORDERED: Acetaminophen 325 MG Tablet PO PRN (13:19)
[2018-06-17] MEDS ORDERED: Bisacodyl 10 MG Supp RECTAL PRN (13:19)
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
[2018-06-17] MEDS: Senna/Docusate Sodium 8.6/50 MG Tablet PO SCH (20:06)
--- NOTE | 2018-06-17 20:42 | XR ---
EXAM DATE: 06/17/2018 8:37 PM EST AGE/SEX: 68 years / Male INDICATIONS: Left hip pain. CLINICAL DATA: This is the patient's subsequent encounter. Patient reports that signs and symptoms h ave been present for 1 week and indicates a pain score of 7/10. MEDICAL/SURGICAL HISTORY: Hypertension. Dementia. Cerebral vascular accident. . COMPARISON: C, HIP LEFT W AP PELVIS 2V, 06/09/2018. . FINDINGS: 2 views of the left hip show no interval change from the prior examination. A rim ossified structure is seen involving the superior aspects of the femoral head without collapse suggesting avascular necr osis. There is a triangular-shaped ossified structure just lateral to the superior portion of the crista tabulum. This is unchanged. The remaining bony structures are unremarkable. Soft tissues are unremark able. CONCLUSION: 1. 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 2. [place] shaped ossification just lateral to the superior portion of the acetabulum which is unch anged from the prior study. This could either relate to a small avulsion fracture or could relate to calcification in the overlying soft tissues. Electronically signed by: Sanjeev Chavez MD Board Certified Radiologist 06/17/2018 8:41 PM EST
--- NOTE | 2018-06-17 20:48 | XR ---
EXAM DATE: 06/17/2018 8:36 PM EST AGE/SEX: 68 years / Male INDICATIONS: Left elbow pain. CLINICAL DATA: This is the patient's subsequent encounter. Patient reports that signs and symptoms h ave been present for 2 weeks and indicates a pain score of 7/10. MEDICAL/SURGICAL HISTORY: Hypertension. Dementia. Cerebral vascular accident. . COMPARISON: No prior exams available for comparison. FINDINGS: 2 views of the elbow were performed. The lateral projection is limited due to the obliquity. No fract ure or dislocation observed. No joint effusion appreciated. Soft tissues are unremarkable. CONCLUSION: Limited but unremarkable study. Electronically signed by: Sanjeev Chavez MD Board Certified Radiologist 06/17/2018 8:47 PM EST
[2018-06-18] MEDS: amLODIPine 10 MG Tablet PO SCH (09:48)
[2018-06-18] MEDS: QUEtiapine 25 MG Tablet PO SCH ×2 (09:48→21:33)
[2018-06-18] MEDS: Spironolactone 25 MG Tablet PO SCH (09:48)
[2018-06-18] MEDS: Lisinopril 20 MG Tablet PO SCH (09:48)
[2018-06-18] MEDS: Senna/Docusate Sodium 8.6/50 MG Tablet PO SCH ×2 (09:48→21:33)
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
[2018-06-19] MEDS: Senna/Docusate Sodium 8.6/50 MG Tablet PO SCH ×2 (09:22→20:24)
[2018-06-19] MEDS: Lisinopril 20 MG Tablet PO SCH (09:22)
[2018-06-19] MEDS: Spironolactone 25 MG Tablet PO SCH (09:22)
[2018-06-19] MEDS: QUEtiapine 25 MG Tablet PO SCH ×2 (09:23→20:24)
[2018-06-19] MEDS: amLODIPine 10 MG Tablet PO SCH (09:23)
--- NOTE | 2018-06-19 10:21 | P.PN ---
Subjective Interval history: awake and alert, cooperative this am, pleasant states "I did alright " with breakfast no pain complains known he is "some hospital" ff all commands states baseline uses a walker Physical Exam Vital signs: Vital Signs 06/18/18 11:55 06/18/18 15:38 06/18/18 20:00 Temperature 97.8 F 98.6 F 98.5 F Pulse Rate 92 H 74 78 Respiratory Rate 12 14 16 Blood Pressure 114/65 117/73 129/84 Pulse Oximetry 100 99 99 Intake & Output 06/18/18 06/19/18 06/19/18 18:59 06:59 18:59 Intake Total 480 / 480 Balance 480 / 480 Intake: Oral 480 / 480 Other: # Voids 2 Date of Last Bowel Movement 06/17/18 06/18/18 Narrative: GENERAL: Well-nourished, well-developed adult male in no obvious distress. oritend to person and place. ff commands SKIN: Warm and dry. HEAD: Atraumatic. Normocephalic. CARDIOVASCULAR: Regular rate and rhythm. RESPIRATORY: No accessory muscle use. Clear to auscultation. Breath sounds equal bilaterally. GASTROINTESTINAL: Abdomen soft, non-tender, non-distended. Positive bowel sounds. MUSCULOSKELETAL: Extremities without clubbing, cyanosis, or edema. No obvious deformities. NEUROLOGICAL: Awake and alert. No obvious cranial nerve deficits. Normal speech. 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 He was initially brought in by EMS under Arechiga act for allegedly threatening to cut his wrists and becoming combative with his . Patient was evaluated by psychiatry and found to not meet criteria for Arechiga act. Now admitted to hospitalist care -initially as bedded outpatient however changed to observation due to starting medications for agitation/dementia. Dementia with agitation -History of frequent UTI; UA negative this admission -Start low-dose Seroquel -Patient will need long-term placement as is unable to care for him Unstable gait- states uses a walker baseline - motor individually 5/5 all extremiteis -Fall on 06/17/18; no head injury. -X-ray ordered to evaluate left hip and elbow -no changes from prior exam. -PT daily history of hypertesnion - on Lisnoril and aldactone DVT prophylaxis: SCDs Discharge planning: Appreciate case management assistance CM asssiting with placement
[2018-06-20] MEDS: Lisinopril 20 MG Tablet PO SCH (09:05)
[2018-06-20] MEDS: QUEtiapine 25 MG Tablet PO SCH ×2 (09:06→20:24)
[2018-06-20] MEDS: Spironolactone 25 MG Tablet PO SCH (09:06)
[2018-06-20] MEDS: amLODIPine 10 MG Tablet PO SCH (09:06)
[2018-06-20] MEDS: Senna/Docusate Sodium 8.6/50 MG Tablet PO SCH ×2 (09:06→20:24)
--- NOTE | 2018-06-20 11:07 | P.PN ---
Subjective Interval history: awake and alert pleasant and cooperaative ff all commanss- moves all extremities - states his name, thinks adait is 2004, knows he is in the hospital today last night - agitated and swung at the nurse Physical Exam Vital signs: Vital Signs 06/19/18 12:00 06/19/18 19:10 06/19/18 23:39 Temperature 97.4 F L 98.1 F 98.4 F Pulse Rate 87 78 83 Respiratory Rate 16 16 17 Blood Pressure 112/71 109/64 128/76 Pulse Oximetry 100 97 96 06/20/18 03:27 06/20/18 08:00 Temperature 97.8 F 97.7 F Pulse Rate 72 68 Respiratory Rate 16 16 Blood Pressure 116/66 127/76 Pulse Oximetry 100 98 Intake & Output 06/19/18 06/20/18 06/20/18 18:59 06:59 18:59 Other: Date of Last Bowel Movement 06/18/18 06/18/18 Narrative: GENERAL: oriented to person and place. ff all commands, speech clear SKIN: Warm and dry. HEAD: Atraumatic. Normocephalic. CARDIOVASCULAR: Regular rate and rhythm. RESPIRATORY: No accessory muscle use. Clear to auscultation. Breath sounds equal bilaterally. GASTROINTESTINAL: Abdomen soft, non-tender, non-distended. Positive bowel sounds. MUSCULOSKELETAL: Extremities without clubbing, cyanosis, or edema. No obvious deformities. NEUROLOGICAL: Awake and alert. No obvious cranial nerve deficits. Normal speech. 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 He was initially brought in by EMS under Arechiga act for allegedly threatening to cut his wrists and becoming combative with his . Patient was evaluated by psychiatry and found to not meet criteria for Arechiga act. Now admitted to hospitalist care -initially as bedded outpatient however changed to observation due to starting medications for agitation/dementia. Dementia with agitation and aggressive behavior - threatened his wrist with a razor and threatened his -History of frequent UTI; UA negative this admission -Started low-dose Seroquel -Patient will need long-term placement as is unable to care for him - get psychaitry consult- dementia with aggressive behavior ? recommendation ? candiate for in patient unit Unstable gait- states uses a walker baseline - motor individually 5/5 all extremiteis -Fall on 06/17/18; no head injury. -X-ray ordered to evaluate left hip and elbow -no changes from prior exam. -PT daily History of hypertesnion- controlled -continue meds- ZECHARIAH + Aldactone- check BMP in am DVT prophylaxis: SCDs Discharge planning: Appreciate case management assistance CM assisting with placement
[2018-06-20 13:07] LABS: Anion Gap 8 meq/L (5-15); Blood Urea Nitrogen 13 mg/dL (7-18); Calcium 8.2 mg/dL (8.5-10.1); Carbon Dioxide 28.4 meq/L (21.0-32.0); Chloride 108 meq/L (98-107); Glomerular Filtration Rate Greater Than 89 mL/min (>89); Glucose,Random 106 mg/dL (74-106); Potassium 3.7 meq/L (3.5-5.1); Sodium 144 meq/L (136-145)
--- NOTE | 2018-06-21 09:00 | P.PN ---
Subjective Interval history: awake and alert, thinks he is in "[place]" denies any pain ff all commands Physical Exam Vital signs: Vital Signs 06/20/18 12:00 06/20/18 16:00 06/20/18 19:31 Temperature 97.6 F 98.5 F Pulse Rate 88 87 80 Respiratory Rate 16 18 16 Blood Pressure 122/81 117/70 126/79 Pulse Oximetry 97 98 93 L 06/21/18 08:00 Temperature 97.8 F Pulse Rate 94 H Respiratory Rate 16 Blood Pressure 172/99 H Pulse Oximetry 98 Intake & Output 06/20/18 06/21/18 06/21/18 18:59 06:59 18:59 Other: Date of Last Bowel Movement 06/18/18 Narrative: GENERAL: oriented to person ff all commands, speech clear SKIN: Warm and dry. HEAD: Atraumatic. Normocephalic. CARDIOVASCULAR: Regular rate and rhythm. RESPIRATORY: No accessory muscle use. Clear to auscultation GASTROINTESTINAL: Abdomen soft, non-tender, non-distended. Positive bowel sounds. MUSCULOSKELETAL: Extremities without clubbing, cyanosis, or edema. No obvious deformities. NEUROLOGICAL: Awake and alert. No obvious cranial nerve deficits. Normal speech. 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 He was initially brought in by EMS under Arechiga act for allegedly threatening to cut his wrists and becoming combative with his . Patient was evaluated by psychiatry and found to not meet criteria for Arechiga act. Now admitted to hospitalist care -initially as bedded outpatient however changed to observation due to starting medications for agitation/dementia. Dementia with agitation and aggressive behavior - threatened his wrist with a razor and threatened his -History of frequent UTI; UA negative this admission -Started on low-dose Seroquel- = monitor and adjust -Patient will need long-term placement as is unable to care for him -per psychiatry- not inpatient candidate - off restraints for last 24 hours Unstable gait- states uses a walker baseline - motor individually 10/25 all extremiteis -Fall on 06/17/18; no head injury. -X-ray ordered to evaluate left hip and elbow -no changes from prior exam. -PT daily - out of bed to chair or sit at side of bed for all meals History of hypertesnion- controlled -continue meds- ZECHARIAH + Aldactone- - BMP 06/20- good DVT prophylaxis: SCDs Discharge planning: Appreciate case management assistance CM assisting with placement - no SNF benefits per last CM niadrienne 06/19 - refused to take him home - per staff- no family visited spoke with - already home health care services- OR, Julián's choice tranmsportation- 1pm- u havesome chores
[2018-06-21] MEDS: QUEtiapine 25 MG Tablet PO SCH ×2 (09:01→20:20)
[2018-06-21] MEDS: Lisinopril 20 MG Tablet PO SCH (09:01)
[2018-06-21] MEDS: Senna/Docusate Sodium 8.6/50 MG Tablet PO SCH ×2 (09:02→20:20)
[2018-06-21] MEDS: Spironolactone 25 MG Tablet PO SCH (09:02)
[2018-06-21] MEDS: amLODIPine 10 MG Tablet PO SCH (09:02)
--- NOTE | 2018-06-21 11:51 | P.CONPSY ---
Provisional Diagnosis Admission Date: June 17, 2018 13:28 [place] I.: Dementia with behavioral disturbance History of Present Illness Service: Psychiatry Consult date: 06/21/18 (Does not meet Arechiga act criteria) Primary Care Provider: [facility] Chief Complaint: Agitation History of Present Illness: June 20 and June 21, 2018 Consult note: Patient was seen on both the and the . He has a history of admission for acute agitation and threatening to cut his wrist. Patient told other examiners that he was just getting. The initial interview was made difficult by the patient's having received medication for agitation. June 21 visit patient was still in bed and eating in the ED. He would choke a bit from time to time and cough and then proceed to drink his milk and eat his biscuit. Patient showed no signs of agitation or distress. He denies any suicidal ideation. He denies auditory visual hallucinations and has no problems returning home. The history and the patient's response to questions about his suggests is a may have agreement and at times do not enjoy one another's company. The patient's agitation appears to occur at and is likely related to his neurocognitive disorder for which she already receives treatment. Recommendations: Patient does not meet criteria for Arechiga act chart for inpatient psychiatric hospitalization. Patient may be discharged as soon as arrangements can be made for his placement either at home or in an assisted living facility. Psychiatric follow-up at the discretion of his primary care physician. [facility] - History History Provided By: Patient - Medical History Medical History: Medical History (Last Reviewed 06/19/18 @ 11:52 by Chica Isaacs) CVA (cerebral vascular accident) Dementia Hyperlipemia Hypertension - Family History Family History: Family History (Last Reviewed 06/19/18 @ 11:53 by Chica Isaacs) Other Family history unknown - Tobacco History Second Hand Smoke Exposure: No Tobacco Use In Past 30 Days: Yes Smoking Status: Current every day smoker Tobacco Type: Cigarettes - Alcohol History How Often Do You Have a Drink Containing Alcohol: Never - Substance Use History Substance History: No History of Abuse - Travel History Recent Travel in the [place] Within the Last 8 Weeks: No Recent Travel Out of the Country Within the Last 8 Weeks: No - Immunization History Tetanus Immunization: >5 Years Hx Influenza Vaccine This Season: No Medications and Allergies Active Medications: Active Medications Acetaminophen (Tylenol) 650 mg PO Q4H PRN PRN Reason: Temp > 100.4 Al Hydroxide/Mg Hydroxide (Milk Of Magnesia Liq) 30 ml PO Q12H PRN PRN Reason: Mild Constipation Amlodipine Besylate (Norvasc) 10 mg PO DAILY [facility] Last Admin: 06/21/18 09:02 Dose: 10 mg Bisacodyl (Dulcolax Supp) 10 mg RECTAL DAILY PRN PRN Reason: SEVERE CONSITIPATION Clopidogrel Bisulfate (Plavix) 75 mg PO DAILY [facility] Last Admin: 06/21/18 09:02 Dose: 75 mg Lactulose (Lactulose Liq) 30 ml PO DAILY PRN PRN Reason: SEVERE CONSITIPATION Lisinopril (Prinivil) 40 mg PO DAILY [facility] Last Admin: 06/21/18 09:01 Dose: 40 mg Quetiapine Fumarate (Seroquel) 25 mg PO BID [facility] Last Admin: 06/21/18 09:01 Dose: 25 mg Senna/Docusate Sodium (Nimco-Colace) 1 tab PO BID [facility] Last Admin: 06/21/18 09:02 Dose: 1 tab Sennosides (Senokot) 17.2 mg PO Q12H PRN PRN Reason: Moderate Constipation Spironolactone (Aldactone) 25 mg PO DAILY [facility] Last Admin: 06/21/18 09:02 Dose: 25 mg Allergies Allergy/AdvReac Type Severity Reaction Status Date / Time No Known Allergies Allergy Verified 06/08/18 16:08 Home Medications Medication Instructions Recorded Confirmed Type amlodipine 10 mg PO DAILY 04/06/18 06/16/18 History clopidogrel 75 mg PO DAILY 04/06/18 06/16/18 History lisinopril 40 mg PO DAILY 04/06/18 06/16/18 History spironolactone 25 mg PO DAILY 04/06/18 06/16/18 History Exam Vital signs: Vital Signs 06/20/18 12:00 06/20/18 16:00 06/20/18 19:31 Temperature 97.6 F 98.5 F Pulse Rate 88 87 80 Respiratory Rate 16 18 16 Blood Pressure 122/81 117/70 126/79 Pulse Oximetry 97 98 93 L 06/21/18 08:00 Temperature 97.8 F Pulse Rate 94 H Respiratory Rate 16 Blood Pressure 172/99 H Pulse Oximetry 98 Intake & Output 12/06/21/18 06/21/18 18:59 06:59 18:59 Other: Date of Last Bowel Movement 06/18/18 Mental Status Examination Appearance: Appropriate Consciousness: Alert Orientation: Person, Place Motor Activity: Other (in bed) Speech: Hesitant, Slow, Other Language: Adequate, Other (diminished) Fund of Knowledge: Inadequate Attention and Concentration: Inadequate Memory: Impaired Mood: Appropriate Affect: Appropriate Thought Process & Associations: Disorganized Thought Content: Other (Preoccupied with eating his lunch) Hallucination Type: None Delusion Type: None Suicidal Ideation: No Suicidal Plan: No Suicidal Intention: No Homicidal Ideation: No Homicidal Plan: No Homicidal Intention: No Insight: Poor Judgment: Poor Assessment and Plan - Assessment (1) 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
[2018-06-21] MEDS ORDERED: diphenhydrAMINE HCl 12.5 MG/5 ML Elixir UDC PO PRN (18:33)
[2018-06-21] MEDS ORDERED: Acetaminophen 500 MG Tablet PO PRN (18:33)
[2018-06-22 04:30] VITALS: PULSE 68; RESP 20
[2018-06-22 07:47] VITALS: BP 126/71; TEMP 98.4; O2SAT 97
[2018-06-22] MEDS: Senna/Docusate Sodium 8.6/50 MG Tablet PO SCH (08:09)
[2018-06-22] MEDS: QUEtiapine 25 MG Tablet PO SCH (08:09)
[2018-06-22] MEDS: Spironolactone 25 MG Tablet PO SCH (08:09)
[2018-06-22] MEDS: amLODIPine 10 MG Tablet PO SCH (08:09)
[2018-06-22] MEDS: Lisinopril 20 MG Tablet PO SCH (08:09)
--- NOTE | 2018-06-22 10:17 | P.DS ---
DS: Providers Date of admission: 06/17/18 13:28 Primary care physician: [facility] Consults: 06/19/18 08:49 HUB Only Consult Order Routine Consulting Provider: Travis Tong,Agency 06/20/18 11:11 Consult to Psychiatry Routine Consulting Provider: Charan Weaver Reason for Consultation: dementia with aggressive behavior- threatente d to cut his wrist with a razor and threatened his here swung at the nurse- recvom- and consider transfer to psychiatr unit for manafement. thanks Notified:: Office Spoke with:: Vani Date Notified:: 06/20/18 Time Notified:: 11:13 Ordering Provider: CHUCK Brief History from admission: Patient is a 68-year-old -Burkinan male with a past medical history of multiple CVAs, hypertension, and dementia who was brought to the emergency room due to increasing agitation. He was initially brought in by EMS under Arechiga act for allegedly threatening to cut his wrists and becoming combative with his . He was seen in the emergency room June 09 for a similar complaint after allegedly pushing his ; his took him home after that event. He has had multiple previous hospitalizations the most recent one 04/06/18 to 04/13/18 for UTI. She was evaluated by psychiatry who found that he did not meet the criteria to remain under Arechiga act. They also did not feel that he would benefit from treatment on the inpatient psychiatric unit. Agree that he will need placement as his is unable to care for him. Psychiatry has recommended adding low- dose Seroquel and/or Depakote to help control his aggressive and impulsive behaviors. Patient is seen lying in bed. He unfortunately fell earlier today after attempting to leave his room. Fall was observed by nursing. Patient did not hit his head and did not lose consciousness. He tripped over his garments which were around his lower legs. He did hit his left hip and elbow in the fall. He is now complaining of some pain in these areas. Otherwise does not have complaints. Does not answer questions and begins slapping at me as I attempt to examine him. 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 He was initially brought in by EMS under a Arechiga act for allegedly threatened to cut his wrists become more combative with his . During the hospitalization he was evaluated by psychiatry who found to not meet criteria for Arechiga act. He was started on the low-dose Seroquel and during the observation time did not show any signs of agitation or aggressive behavior. Physical therapy was consulted and patient baseline is using a walker. Patient sustained a fall on June 17 with no head injury and x-rays were ordered to evaluate left hip and elbow which shows no changes from prior exam. His antihypertensives amlodipine and lisinopril was continued for his history of hypertension. Patient will be transitioned home in the care of his . Time Spent with Patient Total time spent providing and/or coordinating discharge services: Less than 30 minutes Quality: VTE Deep Vein Thrombosis/Pulmonary Embolism Present on Admission: No Exam Narrative Exam Narrative: GENERAL: This is a well-nourished, well-developed patient, in no apparent distress lying in bed. CARDIOVASCULAR: Regular rate and rhythm RESPIRATORY: Clear to auscultation. Breath sounds equal bilaterally. No wheezes , rales, or rhonchi. GASTROINTESTINAL: Abdomen soft, non-tender, nondistended. Normal active bowel sounds MUSCULOSKELETAL: Extremities without clubbing, cyanosis, or edema. NEURO: Alert oriented to self but not to time thinks it was 2006, knew he was in bed but not where, followed directions and was able to move bilateral upper extremities and lower extremities only difficulty. Cooperative during exam. Results Impressions ITS Impressions Elbow X-Ray 06/17/18 00:00 CONCLUSION: Limited but unremarkable study. Hip X-Ray 06/17/18 00:00 CONCLUSION: 1. 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 2. [place] shaped ossification just lateral to the superior portion of the acetabulum which is unchanged from the prior study. This could either relate to a small avulsion fracture or could relate to calcification in the overlying soft tissues. Discharge Plan Discharge Disposition Patient Disposition: W/Home Health Service Discharge Condition Condition: Stable Discharge Order Discharge Orders: Discharge Order (Routine); Ordered 06/22/18 Ordered By: Katherine Henriquez Physicians Team Primary Care Provider: [facility] [place] Attending Provider: Katherine Henriquez Other Providers: [facility],Agency Rxs /Orders / Referrals /Forms Prescriptions: New quetiapine 25 mg Tablet 25 mg PO BID Qty: 60 RF: 0 Continue clopidogrel 75 mg Tablet 75 mg PO DAILY RF: 0 spironolactone 25 mg Tablet 25 mg PO DAILY RF: 0 amlodipine 10 mg Tablet 10 mg PO DAILY RF: 0 lisinopril 40 mg Tablet 40 mg PO DAILY RF: 0 Referrals: [facility],Physician 's [Primary Care Provider] - See Instructions Discharge Instructions Patient Printed Instructions: Quetiapine (By mouth), Dementia (GEN), Altered Mental Status (GEN) Post Discharge Care Plan Care Plan Goals: Your Health Problems: dementia Goals to Promote Your Health: * To prevent worsening of your condition * To maintain your health at the optimal level Directions to Meet Your Goals: * Take your medications as prescribed * Follow your dietary instruction * Follow activity as directed * Keep your appointments as scheduled * Take your immunizations and boosters as scheduled * If your symptoms worsen call your PCP * If no PCP go to Urgent Care or Emergency Room Smoking is dangerous to your health. Avoid second hand smoke. You may reach the 24-hour crisis hotline for domestic abuse at . Status ED Status: Discharged Discharge Information Discharge Date/Time: 06/22/18 14:09
== END 2018-06-22 14:09 | disposition home health service (06) ==
LOC: NEPC 02:59 → NEPFCDU 06-17 04:16 → NEPD 06-17 04:16 → NEPFCDU 06-17 05:28
PROVIDERS: ADMIT Family Medicine; ATTEND Family Medicine
CPT/HCPCS: 73070; 73502; 80048; 80053; 80307; 81001; 83735; 84443; 85025; 90774; 90776; 90784; 90791; 96374; 96376; 97116; 97163; 99285; C8952; G0378; G8987; G8988; J2060